=== PATIENT | female | born 1960 | race African-American/Black ===

== ENCOUNTER 2020-08-01 18:00 | IRF | payer MEDICARE, SELFPAY ==
--- NOTE | 2020-08-01 18:09 | ADMGEN ---
This patient, Nicole Raya, was admitted to [facility] Room 221-02. Patient/family oriented to hospital policies and general routines including ID bracelet, bed and alarms, visiting hours, pain management, procedures, bathroom and other care routines, personal items, smoking policy, room service/diet, and visiting hours. Information on how to activate the Rapid Response Team has been discussed. Patient/Family are encouraged to report perceived risks to care and to ask questions if they do not understand what they are told or what they should do.
[2020-08-01 18:20] VITALS: BP 151/67; PULSE 57; RESP 20; TEMP 36.3; O2SAT 100; BMI 34.4
[2020-08-01] MEDS: ATORVASTATIN 40 MG TABLET PO (20:15)
[2020-08-01 22:00] VITALS: BP 152/73; PULSE 51; RESP 19; TEMP 36; O2SAT 97
[2020-08-02 05:48] LABS: Basophils Percent Auto 0.3 % (0.2-1.2); Eosinophils Absolute Auto 0.2 K/mm3 (0-0.3); Eosinophils Percent Auto 2.9 % (0-4.4); Hematocrit 36.9 % (37.0-47.0); Hemoglobin 11.9 g/dL (12.0-15.0); Immature Granulocyte Absolute 0.03 K/mm3 (0.00-0.031); Immature Granulocyte Percent A 0.5 % (0-0.5); Lymphocytes Absolute Auto 2.34 K/mm3 (0.9-3.2); Lymphocytes Percent Auto 37.6 % (18.3-44.2); Mean Corpuscular HGB Conc 32.2 g/dl (32-36); Mean Corpuscular Hemoglobin 29.9 pg (26-34); Mean Corpuscular Volume 92.7 fl (80-100); Mean Platelet Volume 9.8 fl (7.4-10.4); Monocytes Absolute Auto 0.5 K/mm3 (0.1-0.6); Monocytes Percent Auto 7.2 % (2.6-8.5); Neutrophils Absolute Auto 3.2 K/mm3 (1.3-6.7); Neutrophils Percent Auto 51.5 % (45.5-73.1); Platelet Count Result 274 k/mm3 (150-375); Red Blood Count 3.98 M/mm3 (4.2-5.4); Red Cell Distribution Width 13.6 % (11.5-14.5); White Blood Count 6.2 K/mm3 (4.5-10.0)
[2020-08-02 05:56] LABS: Anion Gap 9 mmol/L (8-16); Blood Urea Nitrogen 22 mg/dL (7-17); Calcium 9.3 mg/dL (8.4-10.2); Carbon Dioxide 28 mmol/L (22-30); Chloride 102 mmol/L (98-107); Cholesterol 163 mg/dL (0-200); Estimated CRCL calculation 57 ml/min; Estimated Glomerular Filt Rate > 60; Glucose 100 mg/dL (65-105); HDL Direct 46 mg/dL; Potassium 3.7 mmol/L (3.4-5.0); Sodium 139 mmol/L (137-145); Triglycerides 132 mg/dL (<150)
[2020-08-02 06:00] VITALS: BP 155/79; PULSE 50; RESP 18; TEMP 36.2; O2SAT 98
[2020-08-02 06:07] LABS: LDL Cholesterol Direct 71 mg/dL
[2020-08-02] MEDS: NICOTINE (*PBKC) 14 MG PATCH 1 PATCH TRANSDERM (08:54)
[2020-08-02 08:55] VITALS: PULSE 48
[2020-08-02] MEDS: THIAMINE HCL 100 MG TABLET PO (08:55)
[2020-08-02] MEDS: amLODIPine BESYLATE 5 MG TABLET 10 MG PO (08:55)
[2020-08-02] MEDS: CLOPIDOGREL BISULFATE 75 MG TABLET PO (08:55)
[2020-08-02] MEDS: VENLAFAXINE HCL XR 75 MG CAP.ER.24H PO (08:55)
[2020-08-02] MEDS: CHLORTHALIDONE 25 MG TABLET 50 MG PO (08:55)
[2020-08-02] MEDS: ASPIRIN 81 MG CHEWABLE TABLET PO (08:55)
[2020-08-02] MEDS: FOLIC ACID 1 MG TABLET PO (08:56)
[2020-08-02] MEDS: ACETAMINOPHEN 325 MG TABLET 650 MG PO ×2 (12:49→17:22)
[2020-08-02] MEDS: guaiFENesin/DEXTROMETHORPHAN 10 ML UDC PO (12:49)
[2020-08-02 14:00] VITALS: BP 128/79; PULSE 63; RESP 20; TEMP 36.1; O2SAT 100
[2020-08-02 14:29] VITALS: BMI 34.4
--- NOTE | 2020-08-02 14:47 | PCNSR ---
On 08/02/20, the student, Madiha Osborne, provided care and completed [facility] documentation on this patient. I have reviewed the student's documentation and agree with the findings.
--- NOTE | 2020-08-02 16:34 | WPDREHABHP ---
H&P: HPI History of Present Illness Date/Time: 08/02/20 16:34 Chief complaint: CVA Narrative: Nicole Raya is a 59 year old femaleAdmitted to the acute rehab floor with the primary rehab impairment category of his stroke and etiological diagnosis of multiple subcentimeter area of acute and subacute infarction within the posterior fossa. Patient was seen [id number] at 11:00 a.m. on August 02, 2020 history and physical examination 59 years old right-handed female with past medical history of significant hypertension, depression, and arthritis presented to [facility] via EMS from [facility] on July 25, 2020 with the complaint of left-sided weakness which began approximately 2 days prior to the admission. NIH noted to be 2 at OSH and 5 at [facility]. Patient reported swollen tongue and dysarthria edb again at the OS H. MRI at OSH confirmed a multiple subcentimeter areas of acute and subacute infarction within the posterior fossa and 1 within the left thalamus. Patient was not a tPA candidate due to the presentation past 4-1/2 hours after onset. The patient is a heavy tobacco user and a nicotine patch 14 per day was order. Neurology was consulted and the patient was started on aspirin, clopidogrel and atorvastatin. The patient was not on any antithrombotic medications at home prior to this particular incident. CTA results showed severe basilar artery stenosis with severe RV for stenosis and moderate LV for his stenosis CT angiogram documented severe basilar artery stenosis with near complete occlusion. Jacky unremarkable. This time suspect was most likely ischemic mechanism to be large artery atherosclerosis. Hemoglobin A1c is 5.7. Physical examination continued to reveal left-sided weakness, balance impairment, decreased gross motor control, decreased safety awareness, dysarthria, expressive aphasia, and ataxia. The patient is awake alert oriented x3 with poor insight into current deficit. She is on diabetic consistent carbohydrate regular consistency diet. She will discharged to [id number] see on heparin for DVT prophylaxis until she is consistently ambulating 150ft daily. Physician recommended Diederich a PT indefinitely. The patient has not traveled outside the [place] or had contact with someone who is ill that his travel outside the [place] in the past 21 days. The patient has not traveled to an area of the [place] that is experiencing known transmission of the Coronavirus and has not had close personal contact with anyone that has. The patient does not have fever the patient is not experiencing lower respiratory illness symptom. COVID-19 testing on July 26, 2020 was negative. Therapy was initiated at the acute care facility and the patient was transferred to us from [facility] on August 01, 2020 Review of Systems Review of Systems Narrative: FALLS OR SURGERIES: The patient has had [no] major surgeries in the 100 days prior to admission. They had [no] falls in the past year. They had [no] falls with injury in the past year. PAST MEDICAL HISTORY: [ hypertension, depression, arthritis, 2 tobacco use.] PAST SURGICAL HISTORY: None on the file] SOCIAL HISTORY: patient is a heavy tobacco user of 1 pack per day for the last 30 years. Patient denies alcohol or illicit drug use. The patient lives in a split level home with 6 steps to enter the house and 12 steps down to the kitchen. She lives with her significant other. The patient was independent in ADLs and IADLs prior to prior using a quad cane] FAMILY HISTORY: [] PRIOR LEVEL OF FUNCTION: Eating was [INDEPENDENT] Oral Care was [INDEPENDENT] Toileting Hygiene was [INDEPENDENT] Shower/Bathing was [INDEPENDENT] Upper Body Dressing was [INDEPENDENT] Lower Body Dressing was [INDEPENDENT] Donning/[place] Footwear was [INDEPENDENT] Rolling Left and Right was [INDEPENDENT] Sit to Lying was [INDEPENDENT] Lying to Si
--- NOTE | 2020-08-02 17:30 | PC.NURSE ---
patient refused hygroten at this time. patient states she has not taken that medication for years. MD updated and spoke to patient. will continue to monitor.
[2020-08-02] MEDS: ATORVASTATIN 40 MG TABLET PO (20:26)
[2020-08-02 22:00] VITALS: BP 134/66; PULSE 53; RESP 19; TEMP 36.2; O2SAT 99
[2020-08-03] MEDS: BENZOCAINE/MENTHOL (*BKC) 18 EA LOZENGE 1 LOZENGE BY MOUTH (05:54)
[2020-08-03 06:00] VITALS: BP 158/90; PULSE 53; RESP 19; TEMP 36.1; O2SAT 98
--- NOTE | 2020-08-03 08:53 | RPD ---
INDIVIDUALIZED PLAN OF CARE FOR Nicole Raya Brief Synthesis of Pre-Admission Screen, Post-Admission Evaluation and Therapy Evaluations: The patient presents to rehab with multiple sub-centimer area of acute-subacute infarction within the posterior fossa. Comorbidities include severe basilar artery stenosis with near complete occlusion, severe R V4 stenosis, moderate L V4 stenosis, leftside headache, tongue swelling, left-sided weakness, dysarthria, heavy tobacco use, HTN, depression, arthritis, and expressive aphasia. The complexity of the patient's medical management, nursing, and therapy needs require an inpatient rehab hospital stay with a physician-led interdisciplinary team approach. The patient?s needs will be best met in an intensive program vs. at a lower level of care. The patient requires physician services for neurology services, medical oversight, and coordination of care. The patient needs physician monitoring and treatment of hypertension, bradycardia, monitoring for adverse reactions to new medications, monitoring of infection, and pain control. The patient requires nursing services for frequent neuro checks, anticoagulation therapy, medication management and education, pressure relief and skin care management, monitoring of labs, and fall/safety precautions. Deficits include:ADLs, Balance, Cognition, Endurance, Family Training/Education, Mobility, Pain Management, ROM, Safety, Speech, Strength, and Transfers. Manager Gaming/Case Management for: Discharge Planning and Patient/Family Counseling Physical Therapy: 5 days per week for 75 minutes. Treatments may include: Therapeutic Exercise, Gait Training, Neuromuscular Re-education, Transfer Training, Community Reintegration, Bed Mobility, Patient/Family Education, Wheelchair Mobility Group Therapy/Concurrent Therapy Rationales: -Improve attention span during functional activities in a distracted environment. -Enhance problem solving and/or adequate judgment skills during functional activities in a distracted environment. -Promote increased safety awareness in a distracted environment to reduce fall risk with functional tasks, transfers, and ambulation to allow a more safe, self-sufficient return to the home environment. -Improve dynamic balance skills to promote safety and independence with functional activities in a distracted environment for maximum gain. Occupational Therapy: 5 days per week for 75 minutes. Treatments may include: Therapeutic Exercise, Therapeutic Activity, Cognitive Training, Self-Care Transfer Training, Community Reintegration, Home Management, Patient/Family Education, Wheelchair Mobility Training, Energy Conservation Training Group Therapy/Concurrent Therapy Rationales: -Allow therapist to observe and teach generalization and carry-over of skills learned in individual therapy. -Enhance problem solving and sequencing skills during therapeutic activities in a distracted environment. -Promote increased safety awareness in a realistic setting to reduce fall risk with functional tasks due to visual and verbal distractions. -Increase functional level with ADLs, ADL transfers and use of adaptive equipment through therapeutic activities with others while promoting safety to allow a more safe, self-sufficient return home. Speech Therapy: 5 days per week for 30 minutes. Treatments may include: Dysphasia Therapy, Speech/Language/Communication Therapy, Cognitive Training, Patient/Family Education Group Therapy/Concurrent Therapy - Rationale: -Allow therapist to observe and teach generalization and carry-over of skills learned in individual therapy. -Improve comprehension skills with complex or abstract ideas through discussion in a realistic setting. -Enhance problem solving skills with complex issues during activities in a distracted environment. -Promote increased memory skills and concentration in a distracted environment for a safe transition home. -Improve attention and focus wit
[2020-08-03] MEDS: amLODIPine BESYLATE 5 MG TABLET 10 MG PO (09:57)
[2020-08-03] MEDS: VENLAFAXINE HCL XR 75 MG CAP.ER.24H PO (09:57)
[2020-08-03] MEDS: CLOPIDOGREL BISULFATE 75 MG TABLET PO (09:58)
[2020-08-03] MEDS: CHLORTHALIDONE 25 MG TABLET 50 MG PO ×2 (09:58→17:18)
[2020-08-03] MEDS: ASPIRIN 81 MG CHEWABLE TABLET PO (09:58)
[2020-08-03] MEDS: THIAMINE HCL 100 MG TABLET PO (09:58)
[2020-08-03] MEDS: FOLIC ACID 1 MG TABLET PO (09:59)
[2020-08-03] MEDS: NICOTINE (*PBKC) 14 MG PATCH 1 PATCH TRANSDERM (09:59)
[2020-08-03 10:13] VITALS: PULSE 78
[2020-08-03] MEDS: guaiFENesin/DEXTROMETHORPHAN 10 ML UDC PO ×2 (10:13→23:51)
[2020-08-03] MEDS: atenoloL 50 MG TABLET PO (10:13)
[2020-08-03 14:00] VITALS: BP 162/87; PULSE 78; RESP 20; TEMP 36.6; O2SAT 99
--- NOTE | 2020-08-03 18:06 | PC.NURSE ---
This evening patient has been restless and talking about leaving the hospital, stated she was going to call [employer] for a ride home, Counseled at length and reassured that doctor would speak to her tomorrow about discharge, i attempted to call her daughter listed on paperwork but there was no answer and mailbox was full. i spoke with dr. Fernandez, we have orders to start zyprexa and then continue daily 2.5mg, patient at this time is agreeable
[2020-08-03] MEDS: ATORVASTATIN 40 MG TABLET PO (18:43)
[2020-08-03 20:00] VITALS: PULSE 48; RESP 20; O2SAT 100
[2020-08-03 22:00] VITALS: BP 131/79; PULSE 48; RESP 20; TEMP 35.7; O2SAT 100
[2020-08-04] MEDS: BENZOCAINE/MENTHOL (*BKC) 18 EA LOZENGE 1 LOZENGE BY MOUTH ×5 (00:32→23:15)
[2020-08-04 01:00] VITALS: PULSE 48; RESP 20; O2SAT 100
[2020-08-04 05:43] VITALS: BP 114/56; PULSE 41; RESP 20; TEMP 36; O2SAT 99
[2020-08-04] MEDS: CHLORTHALIDONE 25 MG TABLET 50 MG PO ×2 (08:59→16:15)
[2020-08-04] MEDS: amLODIPine BESYLATE 5 MG TABLET 10 MG PO (09:00)
[2020-08-04] MEDS: ASPIRIN 81 MG CHEWABLE TABLET PO (09:00)
[2020-08-04] MEDS: FOLIC ACID 1 MG TABLET PO (09:01)
[2020-08-04] MEDS: THIAMINE HCL 100 MG TABLET PO (09:01)
[2020-08-04] MEDS: CLOPIDOGREL BISULFATE 75 MG TABLET PO (09:01)
[2020-08-04] MEDS: NICOTINE (*PBKC) 14 MG PATCH 1 PATCH TRANSDERM (09:01)
[2020-08-04] MEDS: VENLAFAXINE HCL XR 75 MG CAP.ER.24H PO (09:01)
[2020-08-04 09:02] VITALS: PULSE 46
--- NOTE | 2020-08-04 09:02 | PC.NURSE ---
pt heart rate noted at 46. atenolol was held at this time. md updated. will continue to monitor.
--- NOTE | 2020-08-04 12:53 | WPDNEURORHBP ---
Subjective Date/time seen: 08/04/20 12:53 59 years old admitted to the acute rehab floor with primary rehab impairment category of his stroke along with documentation of multiple subcentimeter areas of infarction within the posterior fossa in addition to comorbid conditions of hypertension, arthritis and depression and clinical symptoms of left hemiparesis of 48 hours duration her CTA has documented severe basilar artery stenosis with near complete occlusion Review of Systems Review of Systems: All systems reviewed & are unremarkable except as noted in HPI and below Functional Status Ambulation Ability Ability to Ambulate 10 Feet: Contact Guard Ability to Ambulate 50 Feet With 2 Turns: Contact Guard Ability to Ambulate 150 Feet: Contact Guard Ambulation Assistive Devices: Cane Transfers Ability Ability to Transfer In/Out of Chair: Standby Assistance Exam Narrative: Exam Narrative: on examination today she is awake alert cooperative in no obvious acute distress ear nose throat examination normal neck supple with no cervical bruits no thyromegaly no lymphadenopathy heart regular with no murmur lungs clear to auscultation with no rhonchi or crepitation abdomen is soft with no organomegaly neurological examination is unchanged her hemoglobin is 11.9 with WBC 6.2 and platelet count of 274 electrolytes normal with BUN of 22 and creatinine of 1.10 Objective Data Vital Signs Vital Signs: Vital Signs - 24 hr 08/03/20 14:00 08/03/20 20:00 08/03/20 22:00 Temperature 36.6 C 35.7 C L Pulse Rate 78 48 L 48 L Respiratory Rate 20 20 20 Blood Pressure 162/87 H 131/79 Pulse Oximetry 99 100 100 08/04/20 01:00 08/04/20 05:43 08/04/20 09:02 Temperature 36.0 C L Pulse Rate 48 L 41 L 46 L Respiratory Rate 20 20 Blood Pressure 114/56 L Pulse Oximetry 100 99 Intake/Output Intake/Output: Intake & Output 08/01/20 08/02/20 08/03/20 08/04/20 23:59 23:59 23:59 23:59 Intake Total 240 720 720 240 Balance 240 720 720 240 Meds/Results Medications: Active Medications Generic Name Dose Route Start Last Admin Trade Name Freq PRN Reason Stop Dose Admin Acetaminophen 650 mg 08/02/20 11:52 08/02/20 17:22 Acetaminophen 325 Mg Tablet PO 650 mg Q4H PRN Administration Pain or Fever Amlodipine Besylate 10 mg 08/02/20 09:00 08/04/20 09:00 Amlodipine Besylate 5 Mg Tablet PO 10 mg DAILY JAYY Administration Aspirin 81 mg 08/02/20 09:00 08/04/20 09:00 Aspirin 81 Mg Chewable Tablet PO 81 mg DAILY JAYY Administration Atenolol 50 mg 08/02/20 09:00 08/04/20 09:02 Atenolol 50 Mg Tablet PO Not Given DAILY JAYY Atorvastatin Calcium 40 mg 08/01/20 21:00 08/03/20 18:43 Atorvastatin 40 Mg Tablet PO 40 mg HS JAYY Administration Benzocaine 1 lozenge 08/01/20 18:25 08/04/20 08:59 Benzocaine/Menthol (*Bkc) 18 Ea Lozenge BY MOUTH 1 lozenge Q2H PRN Administration Sore Throat Chlorthalidone 50 mg 08/02/20 09:00 08/04/20 08:59 Chlorthalidone 25 Mg Tablet PO 09/01/20 09:01 50 mg BID JAYY Administration Clopidogrel Bisulfate 75 mg 08/02/20 09:00 08/04/20 09:01 Clopidogrel Bisulfate 75 Mg Tablet PO 75 mg DAILY JAYY Administration Folic Acid 1 mg 08/02/20 09:00 08/04/20 09:01 Folic Acid 1 Mg Tablet PO 1 mg DAILY JAYY Administration Guaifenesin/Dextromethorphan 10 ml 08/01/20 18:25 08/03/20 23:51 Guaifenesin/Dextromethorphan 10 Ml Udc PO 10 ml Q6H PRN Administration Cough Nicotine 1 patch 08/02/20 09:00 08/04/20 09:01 Nicotine (*Pbkc) 14 Mg Patch TRANSDERM 1 patch QAM JAYY Administration Olanzapine 2.5 mg 08/04/20 09:00 08/04/20 08:59 Olanzapine Tab 2.5 Mg Tablet PO 2.5 mg QAM JAYY Administration Thiamine HCl 100 mg 08/02/20 09:00 08/04/20 09:01 Thiamine Hcl 100 Mg Tablet PO 100 mg DAILY JAYY Administration Venlafaxine HCl 75 mg 08/02/20 08:00 08/04/20 09:01 Venlafaxine Hcl Xr 75 Mg Cap.Er.24h P
[2020-08-04 14:00] VITALS: BP 114/59; PULSE 57; RESP 20; TEMP 36.6; O2SAT 100
[2020-08-04] MEDS: guaiFENesin/DEXTROMETHORPHAN 10 ML UDC PO ×2 (16:15→23:13)
[2020-08-04] MEDS: ATORVASTATIN 40 MG TABLET PO (19:59)
[2020-08-04 20:00] VITALS: PULSE 82; RESP 20; O2SAT 98
[2020-08-04 21:44] VITALS: BP 130/63; PULSE 82; RESP 20; TEMP 36.8; O2SAT 98
[2020-08-04] MEDS: ACETAMINOPHEN 325 MG TABLET 650 MG PO (23:18)
[2020-08-05] MEDS: BENZOCAINE/MENTHOL (*BKC) 18 EA LOZENGE 1 LOZENGE BY MOUTH ×4 (04:13→22:19)
[2020-08-05 05:50] LABS: Glucose Point of Care 99 (65-105)
[2020-08-05 06:00] VITALS: BP 148/80; PULSE 76; RESP 20; TEMP 36.6; O2SAT 100
[2020-08-05 09:30] VITALS: PULSE 86; RESP 18; O2SAT 99
[2020-08-05] MEDS: NICOTINE (*PBKC) 14 MG PATCH 1 PATCH TRANSDERM ×2 (09:37→14:41)
[2020-08-05] MEDS: guaiFENesin/DEXTROMETHORPHAN 10 ML UDC PO ×3 (09:37→20:53)
[2020-08-05] MEDS: amLODIPine BESYLATE 5 MG TABLET 10 MG PO (09:37)
[2020-08-05 09:38] VITALS: PULSE 78
[2020-08-05] MEDS: atenoloL 50 MG TABLET PO (09:38)
[2020-08-05] MEDS: ASPIRIN 81 MG CHEWABLE TABLET PO (09:38)
[2020-08-05] MEDS: CHLORTHALIDONE 25 MG TABLET 50 MG PO ×2 (09:39→16:02)
[2020-08-05] MEDS: VENLAFAXINE HCL XR 75 MG CAP.ER.24H PO (09:39)
[2020-08-05] MEDS: FOLIC ACID 1 MG TABLET PO (09:40)
[2020-08-05] MEDS: CLOPIDOGREL BISULFATE 75 MG TABLET PO (09:40)
[2020-08-05] MEDS: THIAMINE HCL 100 MG TABLET PO (09:40)
[2020-08-05 14:00] VITALS: BP 143/69; PULSE 86; RESP 20; TEMP 36.2; O2SAT 99
[2020-08-05 20:00] VITALS: PULSE 51; RESP 19; O2SAT 96
[2020-08-05] MEDS: ATORVASTATIN 40 MG TABLET PO (20:52)
[2020-08-05 22:00] VITALS: BP 132/67; PULSE 51; RESP 19; TEMP 36; O2SAT 96
--- NOTE | 2020-08-06 01:08 | PC.NURSE ---
Daylight Savings Time For Daylight Savings Time Ending in the Fall - Clocks are moved back. For Daylight Savings Time Beginning in the Spring - Clocks are moved ahead. For [facility], the time of change occurs at 0200 hrs. Time is taken from the tower observer. This entry on the patient's chart recognizes the change in time reflected during documentation. Example: 2 entries for vital signs may be charted for 0200 hrs.
[2020-08-06] MEDS: BENZOCAINE/MENTHOL (*BKC) 18 EA LOZENGE 1 LOZENGE BY MOUTH (04:22)
[2020-08-06 06:00] VITALS: BP 149/87; PULSE 54; RESP 19; TEMP 36.4; O2SAT 100
[2020-08-06] MEDS: guaiFENesin/DEXTROMETHORPHAN 10 ML UDC PO ×3 (06:40→21:26)
[2020-08-06] MEDS: CLOPIDOGREL BISULFATE 75 MG TABLET PO (08:45)
[2020-08-06] MEDS: ASPIRIN 81 MG CHEWABLE TABLET PO (08:45)
[2020-08-06] MEDS: amLODIPine BESYLATE 5 MG TABLET 10 MG PO (08:45)
[2020-08-06 08:46] VITALS: PULSE 56
[2020-08-06] MEDS: VENLAFAXINE HCL XR 75 MG CAP.ER.24H PO (08:46)
[2020-08-06] MEDS: atenoloL 50 MG TABLET PO (08:46)
[2020-08-06] MEDS: THIAMINE HCL 100 MG TABLET PO (08:46)
[2020-08-06] MEDS: CHLORTHALIDONE 25 MG TABLET 50 MG PO ×2 (08:46→17:04)
[2020-08-06] MEDS: FOLIC ACID 1 MG TABLET PO (08:46)
[2020-08-06] MEDS: NICOTINE (*PBKC) 14 MG PATCH 1 PATCH TRANSDERM (08:47)
--- NOTE | 2020-08-06 11:19 | WPDNEURORHBP ---
Subjective Date/time seen: 08/06/20 11:19 59 years old has been admitted to the acute rehab with the primary rehab impairment category of stroke along with documentation of multiple subcentimeter areas of infarction in posterior fossa in addition to the comorbid conditions of hypertension, arthritis, and depression and clinical symptomatology of left hemiparesis. CTA has been documented with severe basilar artery stenosis with near complete occlusion. Lab revealed WBC 6.2 with hemoglobin 11.9 platelet count 274 BUN 22 glucose 100 triglycerides 132 cholesterol 163 with LDL 71 and HDL 46 medications unchanged able to ambulate up to 150ft with contact guard and a cane along with ability to transfer in and out of chair standby assistance Review of Systems Review of Systems: All systems reviewed & are unremarkable except as noted in HPI and below Functional Status Ambulation Ability Ability to Ambulate 10 Feet: Contact Guard Ability to Ambulate 50 Feet With 2 Turns: Contact Guard Ability to Ambulate 150 Feet: Contact Guard Ambulation Assistive Devices: Cane Transfers Ability Ability to Transfer In/Out of Chair: Standby Assistance Exam Narrative: Exam Narrative: examination revealed her to be awake alert cooperative in no distress ear nose throat examination normal. Neck is supple. Heart regular. Lungs clear. abdomen is soft . Neuro examination unchanged Objective Data Vital Signs Vital Signs: Vital Signs - 24 hr 08/05/20 14:00 08/05/20 20:00 08/05/20 22:00 Temperature 36.2 C L 36.0 C L Pulse Rate 86 51 L 51 L Respiratory Rate 20 19 19 Blood Pressure 143/69 H 132/67 Pulse Oximetry 99 96 96 08/06/20 06:00 08/06/20 08:46 Temperature 36.4 C L Pulse Rate 54 L 56 L Respiratory Rate 19 Blood Pressure 149/87 H Pulse Oximetry 100 Intake/Output Intake/Output: Intake & Output 08/03/20 08/04/20 08/05/20 08/06/20 23:59 23:59 23:59 22:59 Intake Total 720 720 720 240 Balance 720 720 720 240 Meds/Results Medications: Active Medications Generic Name Dose Route Start Last Admin Trade Name Freq PRN Reason Stop Dose Admin Acetaminophen 650 mg 08/02/20 11:52 08/04/20 23:18 Acetaminophen 325 Mg Tablet PO 650 mg Q4H PRN Administration Pain or Fever Amlodipine Besylate 10 mg 08/02/20 09:00 08/06/20 08:45 Amlodipine Besylate 5 Mg Tablet PO 10 mg DAILY JAYY Administration Aspirin 81 mg 08/02/20 09:00 08/06/20 08:45 Aspirin 81 Mg Chewable Tablet PO 81 mg DAILY JAYY Administration Atenolol 50 mg 08/02/20 09:00 08/06/20 08:46 Atenolol 50 Mg Tablet PO 50 mg DAILY JAYY Administration Atorvastatin Calcium 40 mg 08/01/20 21:00 08/05/20 20:52 Atorvastatin 40 Mg Tablet PO 40 mg HS JAYY Administration Benzocaine 1 lozenge 08/01/20 18:25 08/06/20 04:22 Benzocaine/Menthol (*Bkc) 18 Ea Lozenge BY MOUTH 1 lozenge Q2H PRN Administration Sore Throat Chlorthalidone 50 mg 08/02/20 09:00 08/06/20 08:46 Chlorthalidone 25 Mg Tablet PO 09/01/20 09:01 50 mg BID JAYY Administration Clopidogrel Bisulfate 75 mg 08/02/20 09:00 08/06/20 08:45 Clopidogrel Bisulfate 75 Mg Tablet PO 75 mg DAILY JAYY Administration Folic Acid 1 mg 08/02/20 09:00 08/06/20 08:46 Folic Acid 1 Mg Tablet PO 1 mg DAILY JAYY Administration Guaifenesin/Dextromethorphan 10 ml 08/05/20 11:45 08/06/20 06:40 Guaifenesin/Dextromethorphan 10 Ml Udc PO 10 ml Q4H PRN Administration Cough Nicotine 1 patch 08/02/20 09:00 08/06/20 08:47 Nicotine (*Pbkc) 14 Mg Patch TRANSDERM 1 patch QAM JAYY Administration Olanzapine 2.5 mg 08/04/20 09:00 08/06/20 08:46 Olanzapine Tab 2.5 Mg Tablet PO 2.5 mg QAM JAYY Administration Thiamine HCl 100 mg 08/02/20 09:00 08/06/20 08:46 Thiamine Hcl 100 Mg Tablet PO 100 mg DAILY JAYY Administration Venlafaxine HCl 75 mg 08/02/20 08:00 08/06/20 08:46 Venlafaxine Hcl Xr 75 Mg Cap.Er.24h PO 7
[2020-08-06 14:00] VITALS: BP 133/71; PULSE 58; RESP 18; TEMP 36.8; O2SAT 100
[2020-08-06] MEDS: ACETAMINOPHEN 325 MG TABLET 650 MG PO (17:07)
[2020-08-06] MEDS: ATORVASTATIN 40 MG TABLET PO (19:59)
[2020-08-06 22:00] VITALS: BP 128/65; PULSE 51; RESP 16; TEMP 36.1; O2SAT 96
[2020-08-07] MEDS: BENZOCAINE/MENTHOL (*BKC) 18 EA LOZENGE 1 LOZENGE BY MOUTH (00:14)
[2020-08-07] MEDS: guaiFENesin/DEXTROMETHORPHAN 10 ML UDC PO ×3 (01:52→18:22)
[2020-08-07 06:00] VITALS: BP 131/89; PULSE 54; RESP 19; TEMP 36.4; O2SAT 100
[2020-08-07] MEDS: CHLORTHALIDONE 25 MG TABLET 50 MG PO ×2 (08:32→16:40)
[2020-08-07] MEDS: amLODIPine BESYLATE 5 MG TABLET 10 MG PO (08:32)
[2020-08-07] MEDS: ASPIRIN 81 MG CHEWABLE TABLET PO (08:32)
[2020-08-07] MEDS: THIAMINE HCL 100 MG TABLET PO (08:32)
[2020-08-07 08:33] VITALS: PULSE 54
[2020-08-07] MEDS: VENLAFAXINE HCL XR 75 MG CAP.ER.24H PO (08:33)
[2020-08-07] MEDS: NICOTINE (*PBKC) 14 MG PATCH 1 PATCH TRANSDERM (08:33)
[2020-08-07] MEDS: CLOPIDOGREL BISULFATE 75 MG TABLET PO (08:33)
[2020-08-07] MEDS: atenoloL 50 MG TABLET PO (08:33)
[2020-08-07] MEDS: FOLIC ACID 1 MG TABLET PO (08:34)
[2020-08-07] MEDS: MULTIVITAMINS THERAPEUTIC TAB (*BKC) 1 TABLET PO (11:24)
[2020-08-07 14:00] VITALS: BP 120/69; PULSE 78; RESP 18; TEMP 37.1; O2SAT 100
[2020-08-07 20:30] VITALS: PULSE 51; RESP 18; O2SAT 100
[2020-08-07 20:59] VITALS: BP 118/59; PULSE 51; RESP 18; TEMP 36; O2SAT 100
[2020-08-07] MEDS: ATORVASTATIN 40 MG TABLET PO (21:20)
[2020-08-08] MEDS: BENZOCAINE/MENTHOL (*BKC) 18 EA LOZENGE 1 LOZENGE BY MOUTH ×2 (00:22→05:41)
[2020-08-08 05:39] VITALS: BP 138/69; PULSE 48; RESP 20; TEMP 36.1; O2SAT 100
[2020-08-08] MEDS: guaiFENesin/DEXTROMETHORPHAN 10 ML UDC PO (05:41)
[2020-08-08] MEDS: ASPIRIN 81 MG CHEWABLE TABLET PO (10:21)
[2020-08-08] MEDS: VENLAFAXINE HCL XR 75 MG CAP.ER.24H PO (10:21)
[2020-08-08] MEDS: amLODIPine BESYLATE 5 MG TABLET 10 MG PO (10:21)
[2020-08-08] MEDS: CHLORTHALIDONE 25 MG TABLET 50 MG PO (10:22)
[2020-08-08] MEDS: FOLIC ACID 1 MG TABLET PO (10:22)
[2020-08-08] MEDS: CLOPIDOGREL BISULFATE 75 MG TABLET PO (10:22)
[2020-08-08] MEDS: THIAMINE HCL 100 MG TABLET PO (10:23)
[2020-08-08] MEDS: MULTIVITAMINS THERAPEUTIC TAB (*BKC) 1 TABLET PO (10:23)
[2020-08-08 10:24] VITALS: PULSE 48
[2020-08-08] MEDS: NICOTINE (*PBKC) 14 MG PATCH 1 PATCH TRANSDERM (10:25)
--- NOTE | 2020-08-10 15:26 | PM.DS ---
DS: Admitting Diagnosis Admitting Diagnosis Admitting Diagnosis: 59 years old admitted to the rehab floor with the diagnosis of his stroke and acute and subacute infarction within the posterior fossa in addition to comorbid conditions of no specific problem except hypertension arthritis and depression but history of heavy tobacco use: at the time of admission Eating was setup only Oral Care supervision Toileting Hygiene partial assistance Shower/Bathing partial assistance Upper Body Dressing supervision Lower Body Dressing partial assistance footwear supervision Rolling Left and Right independent sit to lying independent Lying to [place] supervision Bed to Chair Transfers super vision Toilet Transfers super vision Car Transfers supervision Walking 10' partial assistance Walking 50' with Two Turns partial assistance Walking 150' partial assistance Curb or Step partial assistance 4 Steps partial assistance 12 Steps patient is unable to Picking Up Object supervision [Wheelchair Mobility not applicable GOALS: Eating [INDEPENDENT] Oral Care [INDEPENDENT] Toileting Hygiene [INDEPENDENT] Shower/Bathing [INDEPENDENT] Upper Body Dressing [INDEPENDENT] Lower Body Dressing [INDEPENDENT] Donning/[place] Footwear [INDEPENDENT] Rolling Left and Right [INDEPENDENT] Sit to Lying [INDEPENDENT] Lying to Sitting [INDEPENDENT] Sit to Stand [INDEPENDENT] Bed to Chair Transfers [INDEPENDENT] Toilet Transfers [INDEPENDENT] Car Transfers [INDEPENDENT] Walking 10' [INDEPENDENT] Walking 50' with Two Turns [INDEPENDENT] Walking 150' [INDEPENDENT] Curb or Step [INDEPENDENT] 4 Steps [INDEPENDENT] 12 Steps [INDEPENDENT] Picking Up Object [INDEPENDENT] [Wheelchair Mobility 50'] [INDEPENDENT] [Wheelchair Mobility 150'] [INDEPENDENT] DISCHARGE PERFORMANCE: Eating [INDEPENDENT] Oral Care [INDEPENDENT] Toileting Hygiene [INDEPENDENT] Shower/Bathing supervision Upper Body Dressing [INDEPENDENT] Lower Body Dressing [INDEPENDENT] Donning/[place] Footwear [INDEPENDENT] Rolling Left and Right [INDEPENDENT] Sit to Lying [INDEPENDENT] Lying to Sitting [INDEPENDENT] Sit to Stand [INDEPENDENT] Bed to Chair Transfers [INDEPENDENT] Toilet Transfers [INDEPENDENT] Car Transfers [INDEPENDENT] Walking 10' [INDEPENDENT] Walking 50' with Two Turns [INDEPENDENT] Walking 150' supervision walking 10ft on supervision uneven surfaces Curb or Step [INDEPENDENT] 4 Steps [INDEPENDENT] 12 Steps [INDEPENDENT] Picking Up Object [INDEPENDENT] [Wheelchair Mobility 50'] [Wheelchair Mobility 150' not applicable The patient had [no falls]. CVA DS: Summary Time Spent with Patient Time attestation: Total time spent providing and/or coordinating discharge services: Exam Narrative: Exam Narrative: patient throughout the hospitalization remained comfortable was involved actively in the physical therapy and occupational therapy prior to discharge was able to ambulate with assistive device of cane to 150ft stable to transfer in and out of chair with standby assistance general physical examination remained stable neck supple heart regular lungs clear abdomen is soft normal bowel sounds neuro examination unchanged was discharged to home with home health during the entire hospitalization has no falls or injuries and condition definitely improved Discharge Plan Discharge Attending physician on discharge: Alex Flores Discharging Clinician: Alfredo Fernandez Anticipated Discharge Date/Time: 08/08/20 14:24 Patient Disposition: Home Health Service Activity: as tolerated Diet: heart healthy Discharge Instructions: Per Care Coordination: Home Health services have been arranged through [facility]. [facility] can be contacted at [phone]. Please fax discharge instructions to [facility] at [phone]. Patient Instructions: Antibiotic Form, Clopidogrel (By mouth), How to Stop Smoki
--- NOTE | 2020-08-11 10:46 | PM.DS ---
DS: Admitting Diagnosis Admitting Diagnosis Admitting Diagnosis: : 59 years old admitted to the acute rehab with primary rehab impairment category of his stroke and etiological diagnosis of multiple subcentimeter areas of acute and subacute infarction within the posterior fossa in addition to a comorbid condition of hypertension, depression, arthritis, and tobacco abuse. At the time of admission as per the information available his level of function is as follows. Eating eating was set up oral hygiene supervision Toileting Hygiene partial visual merchandising assistant Shower/Bathing [] partial visual merchandising assistant Upper Body Dressing [] supervision Lower Body Dressing [] partial assistance Donning/Ravenel Footwear [] supervision Rolling Left and Right [] independent Sit to Lying [] independent Lying to Sitting [] supervision Sit to Stand [] supervision Bed to Chair Transfers [] supervision Toilet Transfers [] supervision Car Transfers [] supervision Walking 10' [] partial visual merchandising assistant Walking 50' with Two Turns [] partial visual merchandising assistant Walking 150' [] partial visual merchandising assistant Curb or Step [] partial assist 4 Steps [] partial assist 12 Steps [] unable to do so Picking Up Object [] supervising [Wheelchair Mobility 50'] [] not applicable [Wheelchair Mobility 150'] [] not applicable GOALS: Eating [INDEPENDENT] Oral Care [INDEPENDENT] Toileting Hygiene [INDEPENDENT] Shower/Bathing [INDEPENDENT] Upper Body Dressing [INDEPENDENT] Lower Body Dressing [INDEPENDENT] Donning/Ravenel Footwear [INDEPENDENT] Rolling Left and Right [INDEPENDENT] Sit to Lying [INDEPENDENT] Lying to Sitting [INDEPENDENT] Sit to Stand [INDEPENDENT] Bed to Chair Transfers [INDEPENDENT] Toilet Transfers [INDEPENDENT] Car Transfers [INDEPENDENT] Walking 10' [INDEPENDENT] Walking 50' with Two Turns [INDEPENDENT] Walking 150' [INDEPENDENT] Curb or Step [INDEPENDENT] 4 Steps [INDEPENDENT] 12 Steps [INDEPENDENT] Picking Up Object [INDEPENDENT] [Wheelchair Mobility 50'] [INDEPENDENT] [Wheelchair Mobility 150'] [INDEPENDENT] DISCHARGE PERFORMANCE: Eating [INDEPENDENT] Oral Care [INDEPENDENT] Toileting Hygiene [INDEPENDENT] Shower/Bathing supervision Upper Body Dressing [INDEPENDENT] Lower Body Dressing [INDEPENDENT] Donning/Ravenel Footwear [INDEPENDENT] Rolling Left and Right [INDEPENDENT] Sit to Lying [INDEPENDENT] Lying to Sitting [INDEPENDENT] Sit to Stand [INDEPENDENT] Bed to Chair Transfers [INDEPENDENT] Toilet Transfers [INDEPENDENT] Car Transfers [INDEPENDENT] Walking 10' on on even surfaces supervision Walking 50' with Two Turns partial assistance Walking 150' supervision Curb or Step independent 4 Steps independent 12 Steps independent Picking Up Object independent [Wheelchair Mobility 50'] not applicable not applicable [Wheelchair Mobility 150'] The patient had [no falls]. Eating [Set Up Only] Oral Care [] Toileting Hygiene [] Shower/Bathing [] Upper Body Dressing [] Lower Body Dressing [] Donning/Ravenel Footwear [] Rolling Left and Right [] Sit to Lying [] Lying to Sitting [] Sit to Stand [] Bed to Chair Transfers [] Toilet Transfers [] Car Transfers [] Walking 10' [] Walking 50' with Two Turns [] Walking 150' [] Curb or Step [] 4 Steps [] 12 Steps [] Picking Up Object [] [Wheelchair Mobility 50'] [] [Wheelchair Mobility 150'] [] GOALS: Eating [INDEPENDENT] Oral Care [INDEPENDENT] Toileting Hygiene [INDEPENDENT] Shower/Bathing [INDEPENDENT] Upper Body Dressing [INDEPENDENT] Lower Body Dressing [INDEPENDENT] Donning/Ravenel Footwear [INDEPENDENT] Rolling Left and Right [INDEPENDENT] Sit to Lying [INDEPENDENT] Lying to Sitting [INDEPENDENT] Sit to Stand [INDEPENDENT] Bed to Chair Transfers [INDEPENDENT] Toilet Transfers [INDEPENDENT] Car Transfers [INDEPENDENT] Walking 10' [INDEPENDENT] Walking 50' with Two Turns [INDEPENDENT] Walking 150' [INDEPENDENT] Curb or Step [INDEPENDENT] 4 Steps [INDEPENDENT] 12 Steps [INDEPENDENT] Picking Up Object
== END 2020-08-08 14:50 | disposition home health service (06) | DRG 57 ==
PROVIDERS: Admitting Provider Psychiatry & Neurology Neurology; PCP Internal Medicine; Visit Provider Psychiatry & Neurology Neurology
DX: I69.354 Hemiplegia and hemiparesis following cerebral infarction affecting left non-dominant side (principal); I69.322 Dysarthria following cerebral infarction; I69.320 Aphasia following cerebral infarction; I65.03 Occlusion and stenosis of bilateral vertebral arteries; I65.1 Occlusion and stenosis of basilar artery; I10 Essential (primary) hypertension; F32.9 Major depressive disorder, single episode, unspecified; F17.210 Nicotine dependence, cigarettes, uncomplicated; M19.90 Unspecified osteoarthritis, unspecified site
CPT/HCPCS: 36415; 80048; 80061; 85025; 92507; 92523; 97110; 97112; 97116; 97161; 97165; 97530; 97535; A9270

== ENCOUNTER 2021-05-25 09:25 | Emergency (ER) | payer MEDICARE, SELFPAY ==
[2021-05-25 10:10] VITALS: BP 166/91; PULSE 65; RESP 18; TEMP 36.8; O2SAT 98
[2021-05-25 11:00] VITALS: BP 192/88; PULSE 64; RESP 14; O2SAT 98
--- NOTE | 2021-05-25 11:11 | ED.DENTAL ---
HPI - Dental/Oral General Chief complaint: Dental/Oral Stated complaint: TOOTH PAIN Time Seen by Provider: 05/25/21 10:15 Source: patient Mode of arrival: ambulatory Limitations: other (History of stroke with expressive aphasia) History of Present Illness HPI Narrative: This is a 60 year old female that presents to the ER for toothache x 3 days. Presents from [facility] with complaints of her filling falling out. Reporting pain and swelling to the area of two teeth on the right side. Denies fever or facial swelling. Location: Tooth # (1 and 31) Related Data Home Medications Medication Instructions Recorded Confirmed amlodipine 05/25/21 aspirin 05/25/21 atorvastatin 05/25/21 clonidine HCl 05/25/21 clopidogrel 05/25/21 duloxetine mg PO 05/25/21 famotidine 05/25/21 gabapentin 05/25/21 hydroxyzine HCl 05/25/21 lisinopril 05/25/21 trazodone 05/25/21 Allergies Allergy/AdvReac Type Severity Reaction Status Date / Time Penicillins Allergy Unknown Verified 05/25/21 10:38 Review of Systems Review of Systems: CONSTITUTIONAL: Denies fever, ENT: Reports dentalgia RESPIRATORY: Denies dyspnea. All systems reviewed & are unremarkable except as noted in HPI and below PMFSH Past Medical History Medical History (Updated 05/25/21 @ 11:17 by Kaylee Lizarraga PA-C) History of CVA (cerebrovascular accident) History of hyperlipidemia History of hypertension Exam Narrative: GENERAL: Well-appearing, well-nourished, and in no acute distress. HEAD: Normocephalic, atraumatic. EYES: EOMI. ENT: Poor dentition. Tooth #1 and 32 tender to palpation. Mild surrounding redness. No edema or fluctuance to suggest abscess. No trismus. Floor of mouth is soft NECK: Supple. No adenopathy or masses. CHEST: Airway patent HEART: Regular rate EXTREMITIES: Normal range of motion. No edema. SKIN: Warm, dry, no rash. NEURO: Alert and oriented x1 PSYCH: Normal mood and affect Course Vital Signs Vital signs: Vital Signs Temperature 98.2 F 05/25/21 10:10 Pulse Rate 65 05/25/21 10:10 Respiratory Rate 18 05/25/21 10:10 Blood Pressure 166/91 H 05/25/21 10:10 Pulse Oximetry 98 05/25/21 10:10 Temperature 98.2 F 05/25/21 10:10 Pulse Rate 65 05/25/21 10:10 Respiratory Rate 18 05/25/21 10:10 Blood Pressure 166/91 H 05/25/21 10:10 Pulse Oximetry 98 05/25/21 10:10 MDM - Dental/Oral MDM Narrative Medical decision making narrative: Patient presents to the emergency department for toothache ongoing for the last couple of days. She is afebrile and nontoxic-appearing. No trismus. Floor of mouth is soft. Mild redness surrounding the 2 teeth that are painful. There is no evidence of abscess. Patient will be started on oral antibiotics and is to follow-up with a dentist. She was given warnings to return to the ER Critical Care Time Critical Care Time Critical Care Time: No Discharge Plan Discharge Clinical Impression: Toothache Patient Disposition: Home, Self-Care Condition: Stable Instructions: Antibiotic Form, Toothache (ED) Additional Instructions: Return to the Emergency Department if you experience fever >101, increasing swelling and redness of your tooth, difficulty swallowing, trouble breathing, or any other symptoms that are concerning to you Take antibiotic as prescribed. Tylenol or Ibuprofen as needed for pain. You can apply a dab of clove oil to a Qtip and apply to the tooth to help numb the area Follow up with a dentist Prescriptions: New clindamycin HCl 300 mg capsule 300 mg PO Q8H 7 Days Qty: 21 RF: 0 No Action atorvastatin 80 mg tablet RF: 0 clonidine HCl 0.1 mg tablet RF: 0 trazodone 50 mg tablet RF: 0 clopidogrel 75 mg tablet RF: 0 famotidine 20 mg tablet RF: 0 amlodipine 10 mg tablet RF: 0 gabapentin 300 mg capsule RF: 0 aspirin 81 mg tablet,chewable
--- NOTE | 2021-05-25 11:42 | PC.NURSE ---
called and spoke w/ genny to see if [facility] is capable of transporting pt. back to facility states they have no form or transportation at this time.
--- NOTE | 2021-05-25 11:53 | PC.NURSE ---
attempted to call report 2x on pt. no answer at this time.
--- NOTE | 2021-05-25 11:54 | PC.NURSE ---
[facility] to come and get pt. and transport back to facility.
[2021-05-25 12:00] VITALS: BP 166/89; PULSE 56; RESP 14; O2SAT 97
--- NOTE | 2021-05-25 12:30 | PC.NURSE ---
Pt. turned and rolled by GENEVIEVE and ramez.
--- NOTE | 2021-05-25 12:40 | PC.NURSE ---
Pt. requesting apple juice before she leaves
--- NOTE | 2021-05-25 12:41 | PC.NURSE ---
Pt. requesting thick liquid to drink juice. RN informed pt. we do not have that and she could take the apple juice with her to the care home where she has access to the thick liquid.
[2021-05-25 13:00] VITALS: BP 165/84; PULSE 51; RESP 14; O2SAT 97
== END 2021-05-25 13:15 | disposition home or self-care (01) ==
PROVIDERS: Emergency Provider Emergency Medicine; PCP Internal Medicine
DX: K08.89 Other specified disorders of teeth and supporting structures (principal); R21 Rash and other nonspecific skin eruption; E78.5 Hyperlipidemia, unspecified; I10 Essential (primary) hypertension; Z86.73 Personal history of transient ischemic attack (TIA), and cerebral infarction without residual deficits
CPT/HCPCS: 99283

== ENCOUNTER 2021-10-09 04:05 | Inpatient (IN) | payer MEDICARE, SELFPAY ==
[2021-10-09] VITALS (20 sets, daily range): BP systolic 116–190; BP diastolic 54–107; PULSE 70–106; RESP 13–21; TEMP 36.6–37.5; O2SAT 97–100; BMI 36.1
--- NOTE | ~2021-10-09 | MR_ITS ---
EXAMINATION: MR lumbar spine wo/w con DATE: 10/10/2021 12:57 INDICATION: Lower extremity weakness. TECHNIQUE: Magnetic resonance imaging (MRI) of the lumbar spine was performed without and with 20 mL MultiHance intravenous contrast. Sequences included sagittal T2-weighted FSE, sagittal T2-weighted FS FSE, sagittal T1-weighted FSE, and axial T2-weighted FSE. COMPARISON: CT abdomen and pelvis 10/09/2021 FINDINGS: S1 is age is initial segment. Bone alignment is normal. Vertebral body heights and interver tebral disc heights are normal. The distal spinal cord signal intensity is normal. The conus medullar is is at L1. The following disc levels are specifically discussed: L1-L2: The disc does not extend beyond the endplate margin. There is mild bilateral facet joint osteo arthritis. There is no neural foraminal stenosis. There is no central canal stenosis. L2-L3: The disc does not extend beyond the endplate margin. There is severe bilateral facet joint ost eoarthritis. There is mild bilateral neural foraminal stenosis. There is no central canal stenosis. L3-L4: The disc is bulging. There is severe bilateral facet joint osteoarthritis. There is mild bilat eral neural foraminal stenosis. There is no central canal stenosis. L4-L5: The disc is bulging. There is severe bilateral facet joint osteoarthritis. There is mild bilat eral neural foraminal stenosis. There is no central canal stenosis. L5-S1: The disc does not extend beyond the endplate margin. There is an annular fissure. There is ank ylosis of the facet joints with moderate hypertrophy. There is no neural foraminal stenosis. There is no central canal stenosis. IMPRESSION: 1. Mild lumbar spondylosis. Reviewed, dictated and finalized at location [facility]. MINATING ENGINEER IMPRESSION: 1. Mild lumbar spondylosis.
--- NOTE | ~2021-10-09 | CT_ITS ---
EXAMINATION: CT brain wo con DATE: 10/09/2021 08:54 INDICATION: Slurred speech. Leg paresis. History of cerebrovascular accident. TECHNIQUE: Computed tomography (CT) of the head was performed without intravenous contrast. The mA wa s adjusted according to patient size. Iterative reconstruction technique was employed. Exam dose: 68 1.00 mGy-cm total exam DLP. COMPARISON: None FINDINGS: Bilateral carotid siphon internal carotid artery calcifications. Chronic bilateral lacunar infarcts of the brainstem are suggested. Bilateral chronic lacunar infarcts of the thalami. There is nonspecific diminished attenuation of the subcortical and periventricular cerebral white mat ter, likely due to chronic small vessel ischemic change. No intracranial mass lesion or hemorrhage or recent cerebrovascular accident is evident. CT is not se nsitive for detection of hyperacute nonhemorrhagic cerebrovascular accident. No subdural or epidural hematoma. No fracture or bone destruction of the cranial vault. The paranasal sinuses and mastoid air cells are normally developed and aerated. IMPRESSION: Cerebral atherosclerosis and chronic small vessel ischemic changes of the cerebral white matter Chronic bilateral lacunar infarcts of the brainstem and thalami are suggested Reviewed, dictated and finalized at [facility]. Reviewed, dictated and finalized at location [facility]. ROL SPECIALIST
--- NOTE | ~2021-10-09 | CT_ITS ---
EXAMINATION: CT abdomen pelvis w con DATE: 10/09/2021 06:39 INDICATION: Upper abdominal pain. Nausea. TECHNIQUE: Computed tomography (CT) of the abdomen and pelvis was performed with 100 cc Omnipaque 350 intravenous contrast. Automated exposure control and iterative reconstruction technique were employe d. Exam dose: 1632.54 mGy-cm total exam DLP. COMPARISON: None. FINDINGS: There is cholelithiasis. There is gallbladder wall thickening. Consider chronic and possibl y acute cholecystitis. There is an approximately 3.3 x 3.7 cm circumscribed hypoattenuating mass of the left side of the bod y of the pancreas, with some focal left anterolateral wall calcification. Differential diagnosis incl udes benign or malignant lesions including pancreatic pseudocyst versus intraductal papillary mucinou s neoplasm, mucinous cystic neoplasm, serous cystadenoma, neuroendocrine tumor. An approximately 1.5 x 1.7 cm left adrenal mass is noted. Detail is limited due to streak artifact fr om overlapping upper extremities. Differential diagnosis includes adrenal adenoma versus metastasis o r less likely an adrenal carcinoma. No hepatic, splenic, right adrenal or renal space-occupying mass lesion is evident. There is an appro ximately 2.8 mm nonobstructing lower pole left renal calculus. No apparent ureteral calculus or hydro ureteronephrosis of either kidney. There is extensive calcification of the abdominal aorta, iliac arteries as well as calcification at t he origins of the renal arteries, especially prominent on the left. No abdominal or pelvic lymphadenopathy is noted. Mildly enlarged lobular uterus suggestive with some calcifications, suggesting fibroid change. The ur inary bladder is unremarkable. There are numerous diverticula of the sigmoid and descending colon as well as transverse and right co mayela; no CT evidence of diverticulitis. There is some focal soft tissue prominence of the proximal sigmoid colon; recommend colon screening i f the patient has not had recent barium enema or colonoscopy. No bowel obstruction or intraperitoneal free air is noted. Fat-containing inguinal hernias, more prominent on the right. There are some shoddy nonenlarged bilat eral inguinal lymph nodes. The lung bases are clear of infiltrate or consolidation. No pericardial or pleural effusion. Degenerative changes of the thoracic and lumbar spine. No suspicious osteolytic or osteoblastic lesio ns are noted. IMPRESSION: Cholelithiasis and gallbladder wall thickening. Acute cholecystitis is not excluded. Approximately 3.3 x 3.7 cm circumscribed cystic mass of left side of body of pancreas with some focal peripheral calcification; differential diagnosis is given above 1.5 x 1.7 cm left adrenal mass; differential diagnosis is given above Nonobstructing small lower pole left renal calculus Diverticulosis of left and right colon; no CT evidence of diverticulitis Focal nonspecific soft tissue prominence of proximal sigmoid colon; recommend colon workup if this perez s not been done recently. Fibroid uterus Reviewed, dictated and finalized at [facility]. Reviewed, dictated and finalized at [facility]. DING MOVER IMPRESSION: Cholelithiasis and gallbladder wall thickening. Acute cholecystiti s is not excluded. Approximately 3.3 x 3.7 cm circumscribed cystic mass of left side of body of pa ncreas with some focal peripheral calcification; differential diagnosis is give n above 1.5 x 1.7 cm left adrenal mass; differential diagnosis is given above Nonobstructing small lower pole left renal calculus Diverticulosis of left and right colon; no CT evidence of diverticulitis Focal nonspecific soft tissue prominence of proximal sigmoid colon; recommend c olon workup if this has not been d
--- NOTE | ~2021-10-09 | NM_ITS ---
EXAMINATION: NM hepatobiliary wo pharm DATE: 10/10/2021 12:06 INDICATION: Acute cholecystitis. COMPARISON: CT abdomen and pelvis 10/09/2021 TECHNIQUE: 4.8 mCi Tc-99m mebrofenin (Choletec) was administered intravenously. Scintigraphic images of the abdomen were obtained for one hour. Delayed images were obtained at 3 hours. FINDINGS: There is normal clearance of radiotracer from the blood pool. There is increased activity i n the liver at the gallbladder fossa. Activity progresses to the bowel. There is no activity in the g allbladder. IMPRESSION: 1. Acute cholecystitis. Reviewed, dictated and finalized at [facility] MOBILE SERVICE WRITER IMPRESSION: 1. Acute cholecystitis.
--- NOTE | 2021-10-09 04:49 | ED.ABDPAIN ---
HPI - Abdominal Pain General Chief Complaint: Abdominal Pain <Alonso Cassidy MD - Last Filed: 10/09/21 04:51> Stated Complaint: UPPER QUAD ABD PAIN SINCE YEST <Alonso Cassidy MD - Last Filed: 10/09/21 04:51> Time Seen by Provider: 10/09/21 04:48 <Alonso Cassidy MD - Last Filed: 10/09/21 04:51> Source: patient and EMS <Alonso Cassidy MD - Last Filed: 10/09/21 04:51> Mode of arrival: EMS <Alonso Cassidy MD - Last Filed: 10/09/21 04:51> Limitations: other (History of CVA) <Alonso Cassidy MD - Last Filed: 10/09/21 04:51> History of Present Illness HPI narrative: Patient is a 60-year-old female complaining of abdominal pain, right upper quadrant, moderate, nonradiating started yesterday. Patient denies any chest pain, shortness of breath, nausea, vomiting, diarrhea, fever or chills. <Alonso Cassidy MD - Last Filed: 10/09/21 04:51> Related Data Home Medications: Home Medications Medication Instructions Recorded Confirmed amlodipine 05/25/21 aspirin 05/25/21 atorvastatin 05/25/21 clonidine HCl 05/25/21 clopidogrel 05/25/21 duloxetine mg PO 05/25/21 famotidine 05/25/21 gabapentin 05/25/21 hydroxyzine HCl 05/25/21 lisinopril 05/25/21 trazodone 05/25/21 <Alonso Cassidy MD - Last Filed: 10/09/21 04:51> Allergies/Adverse Reactions: Allergies Allergy/AdvReac Type Severity Reaction Status Date / Time Penicillins Allergy Intermediate Hives Verified 10/09/21 04:32 <Alonso Cassidy MD - Last Filed: 10/09/21 04:51> Review of Systems Review of Systems: All systems reviewed & are unremarkable except as noted in HPI and below <Alonso Cassidy MD - Last Filed: 10/09/21 04:51> Constitutional: Constitutional: Denies body ache(s), Denies chills, Denies excessive sweating, Denies fatigue, Denies fever(s), Denies headache(s), Denies lethargy, Denies malaise, Denies weakness and Denies weight loss <Alonso Cassidy MD - Last Filed: 10/09/21 04:51> Eyes: Eyes: Denies blurry vision, Denies change in vision and Denies loss of vision <Alonso Cassidy MD - Last Filed: 10/09/21 04:51> ENT: Denies dizziness, Denies ear discharge, Denies headache(s), Denies lip swelling, Denies epistaxis, Denies nasal congestion, Denies neck pain, Denies throat swelling and Denies tongue swelling <Alonso Cassidy MD - Last Filed: 10/09/21 04:51> Cardiovascular: Cardiovascular: Denies chest pain, Denies chest pain at rest, Denies chest pain with activity, Denies diaphoresis, Denies rapid heart rate, Denies edema, Denies irregular heart rhythm, Denies lightheadedness, Denies palpitations, Denies dyspnea and Denies dyspnea on exertion <Alonso Cassidy MD - Last Filed: 10/09/21 04:51> Respiratory: Respiratory: Denies chest congestion, Denies cough, Denies hemoptysis, Denies dyspnea and Denies dyspnea on exertion <Alonso Cassidy MD - Last Filed: 10/09/21 04:51> Gastrointestinal: Gastrointestinal: Denies melena, Denies hematochezia, Denies diarrhea, Denies nausea, Denies vomiting and Denies hematemesis <Alonso Cassidy MD - Last Filed: 10/09/21 04:51> Musculoskeletal: Musculoskeletal: Denies abnormal gait, Denies deformity, Denies joint swelling, Denies limited range of motion, Denies neck pain and Denies numbness <Alonso Cassidy MD - Last Filed: 10/09/21 04:51> Neurologic: Denies Abnormal speech present, Denies abnormal gait, Denies confusion, Denies dizziness, Denies headache(s), Denies focal weakness, Denies loss of vision, Denies numbness, Denies Other visual disturbances, Denies Sensory deficit (Neuro) and Denies weakness <Alonso Cassidy MD - Last Filed: 10/09/21 04:51> Psychiatric: Psychiatric: Denies confusion, Denies depression, Denies auditory hallucinations, Denies homicidal ideation and Denies suicidal ideation <Alonso Cassidy MD - Last Filed: 10/09/21 04:51> Endocrine: Endocrine: Denies cold intolerance,
[2021-10-09 06:01] LABS: Basophils Percent Auto 0.3 % (0.2-1.2); Hematocrit 35.8 % (37.0-47.0); Hemoglobin 11.7 g/dL (12.0-15.0); Immature Granulocyte Absolute 0.06 K/mm3 (0.00-0.031); Immature Granulocyte Percent A 0.5 % (0-0.5); Lymphocytes Absolute Auto 1.65 K/mm3 (0.9-3.2); Mean Corpuscular HGB Conc 32.7 g/dl (32-36); Mean Corpuscular Hemoglobin 29.1 pg (26-34); Mean Corpuscular Volume 89.1 fl (80-100); Mean Platelet Volume 9.3 fl (7.4-10.4); Monocytes Absolute Auto 0.5 K/mm3 (0.1-0.6); Monocytes Percent Auto 4.2 % (2.6-8.5); Neutrophils Absolute Auto 9.6 K/mm3 (1.3-6.7); Platelet Count Result 333 k/mm3 (150-375); Red Blood Count 4.02 M/mm3 (4.2-5.4); Red Cell Distribution Width 13.5 % (11.5-14.5); White Blood Count 11.8 K/mm3 (4.5-10.0)
[2021-10-09 06:06] LABS: Prothrombin Time 12.6 Seconds (11.1-14.7)
[2021-10-09 06:07] LABS: Partial Thromboplastin Time 33.7 SECONDS (22.3-36.8)
[2021-10-09 06:12] LABS: Alanine Aminotransferase 27 U/L (4-35); Albumin Level 4.9 g/dL (3.5-5.1); Alkaline Phosphatase 127 U/L (38-126); Anion Gap 14 mmol/L (8-16); Aspartate Amino Transferase 32 U/L (14-36); Bilirubin,Total 0.4 mg/dL (0.2-1.3); Blood Urea Nitrogen 13 mg/dL (7-17); Calcium 10.1 mg/dL (8.4-10.2); Carbon Dioxide 25 mmol/L (22-30); Chloride 100 mmol/L (98-107); Estimated Glomerular Filt Rate > 60; Glucose 135 mg/dL (65-110); Lactic Acid Reflex 2.9 mmol/L (0.7-2.1); Lipase 61 U/L (23-300); Potassium 3.7 mmol/L (3.4-5.0); Sodium 139 mmol/L (137-145)
[2021-10-09] MEDS: ONDANSETRON INJ 4 MG/2 ML VIAL IV PUSH (07:06)
[2021-10-09] MEDS: HYDROmorphone HCL INJ (*CRX) 1 MG/ML SYR 0.5 MG IV PUSH (07:07)
[2021-10-09] MEDS: LACTATED RINGERS 1,000 ML 250 ML IV CONT (07:09)
[2021-10-09 08:54] LABS: Reflex Lactic Acid Yes or No Add Lactic
--- NOTE | 2021-10-09 14:21 | ADMGEN ---
This patient, Nicole Ryaa, was admitted to Medical Room 346-01. Patient/family oriented to hospital policies and general routines including ID bracelet, bed and alarms, visiting hours, pain management, procedures, bathroom and other care routines, personal items, smoking policy, room service/diet, and visiting hours. Information on how to activate the Rapid Response Team has been discussed. Patient/Family are encouraged to report perceived risks to care and to ask questions if they do not understand what they are told or what they should do.
--- NOTE | 2021-10-09 15:10 | PCWOUND ---
WOCN NOTE received notice for possible pressure. spoke to RN, mistake in charting. no pressure to assess.
--- NOTE | 2021-10-09 16:07 | PM.IMHP ---
H&P: HPI History of Present Illness Date/Time: 10/09/21 16:07 Chief Complaint: Abdominal pain. Narrative: Patient is a 60-year-old female with past medical history including but not limited to CVA, hypertension, depression, and arthritis presented to the ED complaining of abdominal pain, right upper quadrant, moderate, nonradiating started yesterday. Patient denies any chest pain, shortness of breath, nausea, vomiting, diarrhea, fever or chills Review of Systems Review of Systems: All systems reviewed & are unremarkable except as noted in HPI and below ROS unobtainable: Yes other (limited due to stroke, poor historian) Constitutional: Constitutional: Denies body ache(s), Denies chills, Denies excessive sweating, Denies fatigue, Denies fever(s), Denies headache(s), Denies lethargy, Denies malaise, Denies weakness and Denies weight loss Eyes: Eyes: Denies blurry vision, Denies change in vision and Denies loss of vision ENT: Denies dizziness, Denies ear discharge, Denies headache(s), Denies lip swelling, Denies epistaxis, Denies nasal congestion, Denies neck pain, Denies throat swelling and Denies tongue swelling Cardiovascular: Cardiovascular: Denies chest pain, Denies chest pain at rest, Denies chest pain with activity, Denies diaphoresis, Denies rapid heart rate, Denies edema, Denies irregular heart rhythm, Denies lightheadedness, Denies palpitations, Denies dyspnea and Denies dyspnea on exertion Respiratory: Respiratory: Denies chest congestion, Denies cough, Denies hemoptysis, Denies dyspnea and Denies dyspnea on exertion Gastrointestinal: Gastrointestinal: Denies melena, Denies hematochezia, Denies diarrhea, Denies nausea, Denies vomiting and Denies hematemesis Musculoskeletal: Musculoskeletal: Denies abnormal gait, Denies deformity, Denies joint swelling, Denies limited range of motion, Denies neck pain and Denies numbness Neurologic: Reports Abnormal speech present, Denies abnormal gait, Reports confusion, Denies dizziness, Denies headache(s), Denies focal weakness, Denies loss of vision, Denies numbness, Denies Other visual disturbances, Denies Sensory deficit (Neuro) and Denies weakness Psychiatric: Psychiatric: Reports confusion, Denies depression, Denies auditory hallucinations, Denies homicidal ideation and Denies suicidal ideation Endocrine: Endocrine: Denies cold intolerance, Denies excessive sweating, Denies fatigue, Denies heat intolerance and Denies palpitations Hematologic/Lymphatic: Hematologic/Lymphatic: Denies easy bleeding and Denies easy bruising Allergic/Immunologic: Allergic/Immunologic: Denies lip swelling, Denies throat swelling and Denies tongue swelling PMFSH Past Medical History Medical History History of CVA (cerebrovascular accident) History of gastrostomy tube placement S/p stroke had G-tube which has since been removed. History of hyperlipidemia History of hypertension Surgical History Surgical History History of tubal ligation Family History Family History Father of unknown cause Mother Heart attack Hypertension Social History Social History Smoking packs per day: 1 Smoking cigarettes per day: 20.0 Years smoked: 30 Smoking pack-years: 30.00 Smoking status: Current some day smoker Tobacco type: cigarettes Second hand tobacco smoke exposure: Yes Alcohol intake: former Drinks per week: 0 Substance use: current Other substance usage details: smoke cigarettes sometimes Spiritual care concerns: No Meds Home Medications and Allergies Home Medications Medication Instructions Recorded Confirmed Type acetaminophen [Mapap 650 mg PO Q4H PRN #50 tablet 08/08/20 10/09/21 Rx (acetaminophen)] aspirin 81 mg PO DAILY #30 tablet 08/08/20 10/09/21 Rx clopido
--- NOTE | 2021-10-09 16:42 | PM.CNGS ---
Assessment and Plan Assessment and plan (1) Cholelithiasis and cholecystitis without obstruction: Code(s): K80.10 - Calculus of gallbladder with chronic cholecystitis without obstruction Status: Acute Assessment and Plan: CT scan reviewed and discussed in detail with the patient. She has evidence of cholelithiasis with gallbladder wall thickening. WBC slightly elevated. LFTs and lipase normal. She is denying any abdominal pain and is nontender on exam. HIDA scan ordered. Will await these results to rule out acute cholecystitis. If there is cystic duct obstruction, then we will need to consider further intervention. If this appears to be chronic cholecystitis, then would recommend following a low fat diet. The patient would be a higher risk surgical candidate given her multiple co-morbidities and antiplatelet use. Continue IV Ancef and await HIDA scan results. Repeat labs tomorrow morning. (2) Weakness of both lower extremities: Code(s): R29.898 - Other symptoms and signs involving the musculoskeletal system Status: Acute Assessment and Plan: Unclear if this is acute or chronic following her stroke. CT head showed no acute abnormalities. MRI spine ordered. Neurology consulted. (3) Pancreatic mass: Code(s): K86.89 - Other specified diseases of pancreas Status: Acute Assessment and Plan: Incidentally noted on CT scan. Not her acute issue, but need further investigation that could be done as an outpatient. (4) Adrenal mass: Code(s): E27.8 - Other specified disorders of adrenal gland Status: Acute Assessment and Plan: Incidentally noted on CT scan. (5) Abnormal CT of the abdomen: Code(s): R93.5 - Abnormal findings on diagnostic imaging of other abdominal regions, including retroperitoneum Status: Acute Assessment and Plan: Soft tissue prominence of the proximal sigmoid colon. Patient denies history of a colonoscopy, although her history is limited by her confusion. Would recommend a colonoscopy to further evaluate this area. Could consider GI consult while inpatient? (6) Antiplatelet or antithrombotic long-term use: Code(s): Z79.02 - [employer] (current) use of antithrombotics/antiplatelets Status: Acute Assessment and Plan: On Plavix, unclear of last dose. Hold Plavix until HIDA scan results, see above. (7) Stroke due to embolism: Code(s): I63.9 - Cerebral infarction, unspecified Status: Acute Assessment and Plan: July 2020 with residual right-sided weakness, dysphagia, and slurred speech. (8) Hypertension: Code(s): I10 - Essential (primary) hypertension Status: Acute (9) Obesity (BMI 30-39.9): Code(s): E66.9 - Obesity, unspecified Status: Acute Additional Plan I have discussed the patient's case and plan of care with Dr. Henderson. Thank you for allowing us to see the patient in consultation and we will continue to follow along with you. History of Present Illness Consult details Consult date: 10/09/21 Reason for consult: gallstones (cholelithiasis with gallbladder wall thickening on CT scan) Requesting physician: Kermit Abreu MD Narrative: This is a 60-year-old female with a history of hypertension, hyperlipidemia, and stroke with residual right-sided weakness, slurred speech, and dysphagia who resides at a longterm facility. She is able to answer questions, but at times is difficult to understand due to her slurred speech. She is confused when questioning her history, although is oriented to place and person but not time. She is poor historian, therefore her history is also obtained by review of her EMR. Per the ER documentation, she presented with RUQ abdominal pain x 1 day and new lower extremity weakness. Labs showed a white blood cell count of 11,800, normal LFTs, normal lipase, and lactic acid 2.9. CT scan of the abdomen and pelvis showed gallbladder
[2021-10-09] MEDS: hydrOXYzine HCL 10 MG TABLET PO (22:48)
[2021-10-09] MEDS: GABAPENTIN 300 MG CAPSULE PO (22:48)
[2021-10-09] MEDS: cloNIDine HCL 0.1 MG TABLET PO (22:49)
[2021-10-10] VITALS (10 sets, daily range): BP systolic 138–169; BP diastolic 71–78; PULSE 71–94; RESP 18–20; TEMP 36.3–37.2; O2SAT 98–100; BMI 11.0
[2021-10-10 06:35] LABS: Lactic Acid Reflex 0.7 mmol/L (0.7-2.1)
[2021-10-10 06:36] LABS: Alanine Aminotransferase 19 U/L (4-35); Albumin Level 4.3 g/dL (3.5-5.1); Alkaline Phosphatase 104 U/L (38-126); Anion Gap 10 mmol/L (8-16); Aspartate Amino Transferase 27 U/L (14-36); Bilirubin,Total 0.7 mg/dL (0.2-1.3); Blood Urea Nitrogen 15 mg/dL (7-17); Calcium 9.4 mg/dL (8.4-10.2); Carbon Dioxide 26 mmol/L (22-30); Chloride 101 mmol/L (98-107); Estimated CRCL calculation 70 ml/min; Estimated Glomerular Filt Rate > 60; Glucose 118 mg/dL (65-110); Lipase 57 U/L (23-300); Potassium 3.2 mmol/L (3.4-5.0); Sodium 137 mmol/L (137-145)
[2021-10-10 06:43] LABS: Basophils Percent Auto 0.3 % (0.2-1.2); Eosinophils Percent Auto 0.2 % (0-4.4); Hematocrit 33.7 % (37.0-47.0); Immature Granulocyte Absolute 0.05 K/mm3 (0.00-0.031); Immature Granulocyte Percent A 0.5 % (0-0.5); Lymphocytes Absolute Auto 2.93 K/mm3 (0.9-3.2); Lymphocytes Percent Auto 26.9 % (18.3-44.2); Mean Corpuscular HGB Conc 32.6 g/dl (32-36); Mean Corpuscular Hemoglobin 29.3 pg (26-34); Mean Corpuscular Volume 89.6 fl (80-100); Mean Platelet Volume 9.3 fl (7.4-10.4); Monocytes Absolute Auto 0.9 K/mm3 (0.1-0.6); Monocytes Percent Auto 8.1 % (2.6-8.5); Platelet Count Result 308 k/mm3 (150-375); Red Blood Count 3.76 M/mm3 (4.2-5.4); Red Cell Distribution Width 14.2 % (11.5-14.5); White Blood Count 10.9 K/mm3 (4.5-10.0)
--- NOTE | 2021-10-10 11:38 | PM.IMPN ---
Progress Note: A&P Assessment and Plan (1) Cholelithiasis and cholecystitis without obstruction: Code(s): K80.10 - Calculus of gallbladder with chronic cholecystitis without obstruction Status: Acute Assessment and Plan: Asymptomatic acute cholecystitis. Patient was started on ancef and evaluated by surgery. She has evidence of cholelithiasis with gallbladder wall thickening. WBC slightly elevated. LFTs and lipase normal. She is denying any abdominal pain and abdomen is nontender on exam. HIDA scan ordered. continue low fat diet. Continue IV Ancef. HIDA scan confirmed acute cholecystitis. (2) Weakness of both lower extremities: Code(s): R29.898 - Other symptoms and signs involving the musculoskeletal system Status: Acute Assessment and Plan: Unclear if this is acute or chronic following her stroke. CT head showed no acute abnormalities. MRI spine did not reveal any acute abnormalities. Neurology consulted. (3) Pancreatic mass: Code(s): K86.89 - Other specified diseases of pancreas Status: Acute Assessment and Plan: Incidentally noted on CT scan. Not her acute issue, but need further investigation that could be done as an outpatient. (4) Adrenal mass: Code(s): E27.8 - Other specified disorders of adrenal gland Status: Acute Assessment and Plan: Incidentally noted on CT scan. (5) Abnormal CT of the abdomen: Code(s): R93.5 - Abnormal findings on diagnostic imaging of other abdominal regions, including retroperitoneum Status: Acute Assessment and Plan: Soft tissue prominence of the proximal sigmoid colon. Patient denies history of a colonoscopy, although her history is limited by her dysarthria. GI consult while inpatient, given mobility issues. (6) Antiplatelet or antithrombotic long-term use: Code(s): Z79.02 - intermediate designer (current) use of antithrombotics/antiplatelets Status: Acute Assessment and Plan: On Plavix, unclear of last dose, for secondary prevention of CVA. Hold Plavix until HIDA scan results. (7) Stroke due to embolism: Code(s): I63.9 - Cerebral infarction, unspecified Status: Acute Assessment and Plan: July 2020 with residual right-sided weakness, dysphagia, and slurred speech. (8) Hypertension: Code(s): I10 - Essential (primary) hypertension Status: Acute Assessment and Plan: Continue home BP medications. Blood pressure moderately controlled with measurement in the 156/74-169/78 range. Continue amlodipine 10 mg p.o. daily. Continue clonidine 0.1 mg p.o. t.i.d. Continue lisinopril 40 mg p.o. daily. 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 Subjective Date/time seen: 10/10/21 11:38 S: Patient was seen and examined at the bedside. She denies any abdominal pain. She reports persistent bilateral lower extremity weakness. Review of Systems Review of Systems: All systems reviewed & are unremarkable except as noted in HPI and below Constitutional: Constitutional: Reports as per HPI and Reports no additional constitutional complaints Eyes: Eyes: Reports as per HPI and Reports no additional eye complaints ENT: Reports system reviewed and no additional complaints, except as documented and Reports as per HPI Cardiovascular: Cardiovascular: Reports as per HPI and Reports no additional cardiovascular complaints Respiratory: Respiratory: Reports as per HPI and Reports no additional respiratory complaints Gastrointestinal: Gastrointestinal: Reports as per HPI, Reports no additional gastrointestinal complaints, Denies abdominal pain, Denies nausea and Denies vomiting Genitourinary: Genitourinary: Reports no additional female genitourinary complaints and Reports as per HPI Musculoskeletal: Musculoskeletal: Reports muscle weak
[2021-10-10] MEDS: ARIPiprazole 2 MG TABLET PO (13:29)
[2021-10-10] MEDS: ATORVASTATIN 40 MG TABLET 80 MG PO (13:29)
[2021-10-10] MEDS: amLODIPine BESYLATE 5 MG TABLET 10 MG PO (13:29)
[2021-10-10] MEDS: ASPIRIN 81 MG CHEWABLE TABLET PO (13:29)
[2021-10-10] MEDS: lisinopriL 20 MG TABLET 40 MG PO (13:30)
[2021-10-10] MEDS: CLOPIDOGREL BISULFATE 75 MG TABLET PO (13:30)
[2021-10-10] MEDS: GABAPENTIN 300 MG CAPSULE PO ×2 (13:30→21:20)
[2021-10-10] MEDS: hydrOXYzine HCL 10 MG TABLET PO ×2 (13:31→21:21)
--- NOTE | 2021-10-10 13:39 | PM.PNGS ---
Progress Note: A&P Assessment and Plan (1) Cholelithiasis and cholecystitis without obstruction: Code(s): K80.10 - Calculus of gallbladder with chronic cholecystitis without obstruction Status: Acute Assessment and Plan: CT scan showed cholelithiasis with gallbladder wall thickening, possible acute versus chronic cholecystitis. Patient still not having any abdominal pain or tenderness on exam. WBC down to 10,000, LFTs and lipase normal again today. Lactic down to normal today. HIDA scan showed acute cholecystitis. Will allow her to try clear liquids today and make her NPO after midnight. Will consider proceeding conservative management vs placement of a percutaneous cholecystostomy tube vs laparoscopic cholecystectomy in the next few days since she is not having any abdominal pain and seems to be improving. Given her antiplatelet therapy and multiple co-morbidities, she is a higher risk surgical candidate. Continue IV Ancef. Repeat labs tomorrow. (2) Weakness of both lower extremities: Code(s): R29.898 - Other symptoms and signs involving the musculoskeletal system Status: Acute Assessment and Plan: Unclear if this is acute or chronic following her stroke. CT head showed no acute abnormalities. MRI spine without acute abnormalities explaining weakness. Awaiting Neurology evaluation. (3) Pancreatic mass: Code(s): K86.89 - Other specified diseases of pancreas Status: Acute Assessment and Plan: Incidentally noted on CT scan. Not her acute issue, but will need further investigation that could be done as an outpatient. (4) Adrenal mass: Code(s): E27.8 - Other specified disorders of adrenal gland Status: Acute Assessment and Plan: Incidentally noted on CT scan. See above. (5) Abnormal CT of the abdomen: Code(s): R93.5 - Abnormal findings on diagnostic imaging of other abdominal regions, including retroperitoneum Status: Acute Assessment and Plan: Soft tissue prominence of the proximal sigmoid colon. Patient denies history of a colonoscopy, although her history is limited by her confusion. Would recommend a colonoscopy to further evaluate this area. Could consider GI consult or outpatient referral. (6) Antiplatelet or antithrombotic long-term use: Code(s): Z79.02 - penitentiary (current) use of antithrombotics/antiplatelets Status: Acute Assessment and Plan: Plavix was restarted this afternoon, she received a dose today. Will put Plavix back on hold for possible intervention. (7) Stroke due to embolism: Code(s): I63.9 - Cerebral infarction, unspecified Status: Acute Assessment and Plan: July 2020 with residual right-sided weakness, dysphagia, and slurred speech. (8) Hypertension: Code(s): I10 - Essential (primary) hypertension Status: Acute (9) Obesity (BMI 30-39.9): Code(s): E66.9 - Obesity, unspecified Status: Acute Additional Plan I have discussed the patient's case and plan of care with Dr. Henderson. Subjective Subjective Date/Time Seen: 10/10/21 11:39 Patient reports: no new complaints and afebrile Interval history: Patient seen and examined today. No specific complaints. Denies abdominal pain or nausea. She has been NPO this morning for HIDA scan. No acute issues overnight per nursing. Review of Systems Review of Systems: ROS unobtainable: Yes other (limited d/t slurred speech and stroke) Exam Const: General: no acute distress, alert and awake Nutritional Appearance: obese Orientation/consciousness: oriented to person, oriented to place and confusion GI: Inspection: non-distended, scar (small periumbilical scar, small epigastric scar from previous G-tube) and no visible herniation GI Palp: Yes Soft to palpation, No Tenderness to palpation present (GI), No Guarding due to palpation present (GI) and No Rebound tenderness present Auscultation: normal deepak
[2021-10-10] MEDS: cloNIDine HCL 0.1 MG TABLET PO ×2 (13:42→18:55)
[2021-10-10] MEDS: FAMOTIDINE 20 MG TABLET PO (13:42)
[2021-10-11] VITALS (10 sets, daily range): BP systolic 136–150; BP diastolic 73–77; PULSE 60–79; RESP 18–20; TEMP 36.3–37.2; O2SAT 98–100
[2021-10-11] MEDS: lisinopriL 20 MG TABLET 40 MG PO (08:12)
[2021-10-11] MEDS: hydrOXYzine HCL 10 MG TABLET PO ×2 (08:12→21:00)
[2021-10-11] MEDS: GABAPENTIN 300 MG CAPSULE PO ×2 (08:12→21:00)
[2021-10-11] MEDS: ATORVASTATIN 40 MG TABLET 80 MG PO (08:12)
[2021-10-11] MEDS: traMADol HCL (*CRX) 50 MG TABLET PO ×3 (08:13→17:55)
[2021-10-11] MEDS: cloNIDine HCL 0.1 MG TABLET PO ×3 (08:13→17:55)
[2021-10-11] MEDS: amLODIPine BESYLATE 5 MG TABLET 10 MG PO (08:13)
[2021-10-11] MEDS: ARIPiprazole 2 MG TABLET PO (08:13)
[2021-10-11] MEDS: FAMOTIDINE 20 MG TABLET PO ×2 (08:13→17:55)
[2021-10-11] MEDS: ASPIRIN 81 MG CHEWABLE TABLET PO (08:13)
--- NOTE | 2021-10-11 08:30 | PM.IMPN ---
Progress Note: A&P Assessment and Plan (1) Cholelithiasis and cholecystitis without obstruction: Code(s): K80.10 - Calculus of gallbladder with chronic cholecystitis without obstruction Status: Acute Assessment and Plan: Asymptomatic acute cholecystitis, Currently on IV antibiotic with Invanz. she is also being evaluated by surgery. She has evidence of cholelithiasis with gallbladder wall thickening. WBC slightly elevated. LFTs and lipase normal. She is denying any abdominal pain and abdomen is nontender on exam. HIDA scan confirms cholecystitis. Resume low fat diet. Continue IV Ancef. (2) Weakness of both lower extremities: Code(s): R29.898 - Other symptoms and signs involving the musculoskeletal system Status: Acute Assessment and Plan: Unclear if this is acute or chronic following her stroke. CT head showed no acute abnormalities. MRI spine did not reveal any acute abnormalities. Neurology consulted. (3) Pancreatic mass: Code(s): K86.89 - Other specified diseases of pancreas Status: Acute Assessment and Plan: Incidentally noted on CT scan. GI was consultedNot her acute issue, but need further investigation that could be done as an outpatient. (4) Adrenal mass: Code(s): E27.8 - Other specified disorders of adrenal gland Status: Acute Assessment and Plan: Incidentally noted on CT scan. (5) Abnormal CT of the abdomen: Code(s): R93.5 - Abnormal findings on diagnostic imaging of other abdominal regions, including retroperitoneum Status: Acute Assessment and Plan: Soft tissue prominence of the proximal sigmoid colon. Patient denies history of a colonoscopy, although her history is limited by her dysarthria. GI consult while inpatient, given mobility issues. (6) Antiplatelet or antithrombotic long-term use: Code(s): Z79.02 - longterm (current) use of antithrombotics/antiplatelets Status: Acute Assessment and Plan: On Plavix, unclear of last dose, for secondary prevention of CVA. who Plavix today. (7) Stroke due to embolism: Code(s): I63.9 - Cerebral infarction, unspecified Status: Acute Assessment and Plan: July 2020 with residual right-sided weakness, dysphagia, and slurred speech. (8) Hypertension: Code(s): I10 - Essential (primary) hypertension Status: Acute Assessment and Plan: Hypertension is moderately controlled with a blood pressure of 147/77 today. Continue home BP medications. Blood pressure Was elevated on admission with measurement in the 156/74-169/78 range. Continue amlodipine 10 mg p.o. daily. Continue clonidine 0.1 mg p.o. t.i.d. Continue lisinopril 40 mg p.o. daily. 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 Subjective Date/time seen: 10/11/21 08:30 S: Patient was seen and examined at the bedside. She denies any abdominal pain. She reports bilateral lower extremity swelling. Review of Systems Review of Systems: All systems reviewed & are unremarkable except as noted in HPI and below ROS unobtainable: Yes other (limited due to stroke, poor historian) Constitutional: Constitutional: Reports as per HPI, Reports no additional constitutional complaints, Denies body ache(s), Denies chills, Denies excessive sweating, Denies fatigue, Denies fever(s), Denies headache(s), Denies lethargy, Denies malaise, Reports weakness and Denies weight loss Eyes: Eyes: Reports as per HPI, Reports no additional eye complaints, Denies blurry vision, Denies change in vision and Denies loss of vision ENT: Reports system reviewed and no additional complaints, except as documented, Reports as per HPI, Denies dizziness, Denies ear discharge, Denies headache(s), Denies lip swelling, Denies epistaxis, Denies nasal congestion, Denies neck pain
[2021-10-11 09:57] LABS: Basophils Percent Auto 0.2 % (0.2-1.2); Eosinophils Percent Auto 0.1 % (0-4.4); Hematocrit 35.1 % (37.0-47.0); Hemoglobin 11.5 g/dL (12.0-15.0); Immature Granulocyte Absolute 0.03 K/mm3 (0.00-0.031); Immature Granulocyte Percent A 0.3 % (0-0.5); Lymphocytes Absolute Auto 1.93 K/mm3 (0.9-3.2); Mean Corpuscular HGB Conc 32.8 g/dl (32-36); Mean Corpuscular Volume 88.4 fl (80-100); Mean Platelet Volume 9.6 fl (7.4-10.4); Monocytes Absolute Auto 0.6 K/mm3 (0.1-0.6); Monocytes Percent Auto 6.6 % (2.6-8.5); Neutrophils Percent Auto 72.8 % (45.5-73.1); Platelet Count Result 322 k/mm3 (150-375); Red Blood Count 3.97 M/mm3 (4.2-5.4); Red Cell Distribution Width 13.9 % (11.5-14.5); White Blood Count 9.6 K/mm3 (4.5-10.0)
[2021-10-11 10:12] LABS: Alanine Aminotransferase 18 U/L (4-35); Albumin Level 4.3 g/dL (3.5-5.1); Alkaline Phosphatase 110 U/L (38-126); Anion Gap 13 mmol/L (8-16); Aspartate Amino Transferase 26 U/L (14-36); Bilirubin,Total 0.6 mg/dL (0.2-1.3); Blood Urea Nitrogen 16 mg/dL (7-17); Calcium 9.4 mg/dL (8.4-10.2); Carbon Dioxide 24 mmol/L (22-30); Chloride 101 mmol/L (98-107); Estimated CRCL calculation 70 ml/min; Estimated Glomerular Filt Rate > 60; Glucose 129 mg/dL (65-110); Potassium 3.2 mmol/L (3.4-5.0); Sodium 138 mmol/L (137-145)
--- NOTE | 2021-10-11 11:47 | WPDNEURCNPN ---
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 Cholelithiasis 3. Left adrenal mass and number for diverticulosis plan is the general treatment as being planned Consult date: 10/11/21 HPI: Nicole Raya is a 60 year old female admitted to the hospital for the complaints of abdominal pain. Neurology consultation obtained because patient has ongoing history of his stroke in the past in addition to hypertension, depression, and arthritis. Does have history of gastrostomy tube placement in the past with subsequent conversion to G-tube but has been removed, history of smoking years 30 and her outpatient medications included aspirin 81 mg daily clopidogrel 75 mg daily atorvastatin 80 mg daily in addition to antihypertensive medication as well Review of Systems Review of Systems: All systems reviewed & are unremarkable except as noted in HPI and below PMFSH Past Medical History Medical History History of CVA (cerebrovascular accident) History of gastrostomy tube placement S/p stroke had G-tube which has since been removed. History of hyperlipidemia History of hypertension Surgical History Surgical History History of tubal ligation Family History Family History Father of unknown cause Mother Heart attack Hypertension Social History Social History Smoking packs per day: 1 Smoking cigarettes per day: 20.0 Years smoked: 30 Smoking pack-years: 30.00 Smoking status: Current some day smoker Tobacco type: cigarettes Second hand tobacco smoke exposure: Yes Alcohol intake: former Drinks per week: 0 Substance use: current Other substance usage details: smoke cigarettes sometimes Spiritual care concerns: No Meds Home Medications and Allergies Home Medications Medication Instructions Recorded Confirmed Type acetaminophen [Mapap 650 mg PO Q4H PRN #50 tablet 08/08/20 10/09/21 Rx (acetaminophen)] aspirin 81 mg PO DAILY #30 tablet 08/08/20 10/09/21 Rx clopidogrel 75 mg PO DAILY #30 tablet 08/08/20 10/09/21 Rx atorvastatin 80 mg PO DAILY 05/25/21 10/09/21 History clonidine HCl 0.1 mg PO TID 05/25/21 10/09/21 History famotidine 20 mg PO BID 05/25/21 10/09/21 History gabapentin 300 mg PO BID 05/25/21 10/09/21 History hydroxyzine HCl 10 mg PO BID 05/25/21 10/09/21 History lisinopril 40 mg PO DAILY 05/25/21 10/09/21 History amlodipine [Norvasc] 10 mg PO DAILY 10/09/21 10/09/21 History aripiprazole [Abilify] 2 mg PO DAILY 10/09/21 10/09/21 History bisacodyl [Dulcolax (bisacodyl)] 10 mg RECTAL DAILY PRN 10/09/21 10/09/21 History miconazole-tolnaftate 2 % TOPICAL BID 10/09/21 10/09/21 History tramadol 50 mg PO TID 10/09/21 10/09/21 History Allergies Allergy/AdvReac Type Severity Reaction Status Date / Time Penicillins Allergy Intermediate Hives Verified 10/09/21 04:32 Vital Signs Vital Signs - 24 hr 10/10/21 12:00 10/10/21 14:00 10/10/21 16:00 Temperature 36.4 C L Pulse Rate 94 80 83 Respiratory Rate 20 Blood Pressure 156/74 H Pulse Oximetry 98 10/10/21 19:50 10/10/21 20:04 10/10/21 22:25 Temperature 36.3 C L 37.2 C Pulse Rate 71 75 73 Respiratory Rate 18 18 20 Blood Pressure 138/71 Pulse Oximetry 98 98 100 10/11/21 00:05 10/11/21 04:04 10/11/21 05:35 Temperature 37.2 C Pulse Rate 79 60 76 Respiratory Rate 20 Blood Pressure 147/77 H Pulse Oximetry 100 10/11/21 08:00 Temperature Pulse Rate 75 Respiratory Rate Blood Pressure Pulse Oximetry Exam Narrative: examination revealed her to be awake alert cooperative in no obvious acute distress. Head was normocephalic wi
--- NOTE | 2021-10-11 13:33 | PM.PNGS ---
Progress Note: A&P Assessment and Plan (1) Cholelithiasis and cholecystitis without obstruction: Code(s): K80.10 - Calculus of gallbladder with chronic cholecystitis without obstruction Status: Acute Assessment and Plan: CT scan showed cholelithiasis with gallbladder wall thickening, possible acute versus chronic cholecystitis. HIDA scan showed acute cholecystitis. Patient still not having any abdominal pain or tenderness on exam. WBC, LFTs and lipase normal today. Lactic normalized. I discussed options with the patient in great detail today - including trying conservative management with antibiotics (switching to oral antibiotics on discharge) and following a low fat diet to try and prevent future episodes, versus placement of a percutaneous cholecystostomy tube, versus proceeding with a laparoscopic cholecystectomy, possible open by Dr. Henderson under general anesthesia. Description of the procedure, risks, benefits, expected outcomes, and expected recovery were discussed with the patient in detail. All questions were answered. The patient would like to avoid surgery at this time, especially since she is not having any symptoms. She would like to try advancing on a diet and continuing with antibiotics and monitoring. With her stroke history and question of new neurological symptoms, this may be the best option at this time to avoid risks associated with surgery. We will see how she does overnight and repeat labs again tomorrow morning. If she tolerates a diet, she could potentially be sent home with oral antibiotics and would need to follow a low fat diet. She understands the risks of future complications with her gallbladder disease and would still prefer the conservative option. Continue IV Ancef. Will start her on a low fat diet. (2) Weakness of both lower extremities: Code(s): R29.898 - Other symptoms and signs involving the musculoskeletal system Status: Acute Assessment and Plan: Unclear if this is acute or chronic following her stroke. CT head showed no acute abnormalities. MRI spine without acute abnormalities explaining weakness. Neurology consulted. (3) Pancreatic mass: Code(s): K86.89 - Other specified diseases of pancreas Status: Acute Assessment and Plan: Incidentally noted on CT scan. Not her acute issue, but will need further investigation that could be done as an outpatient. (4) Adrenal mass: Code(s): E27.8 - Other specified disorders of adrenal gland Status: Acute Assessment and Plan: Incidentally noted on CT scan. See above. (5) Abnormal CT of the abdomen: Code(s): R93.5 - Abnormal findings on diagnostic imaging of other abdominal regions, including retroperitoneum Status: Acute Assessment and Plan: Soft tissue prominence of the proximal sigmoid colon. Patient denies history of a colonoscopy, but her history is somewhat limited. Would recommend a colonoscopy to further evaluate this area. Consider GI consult or outpatient referral. (6) Antiplatelet or antithrombotic long-term use: Code(s): Z79.02 - termite helper (current) use of antithrombotics/antiplatelets Status: Acute Assessment and Plan: Continue to HOLD Plavix for today until we see how she tolerates a diet by tomorrow, in case she does not tolerate a diet and requires further intervention. (7) Stroke due to embolism: Code(s): I63.9 - Cerebral infarction, unspecified Status: Acute (8) Hypertension: Code(s): I10 - Essential (primary) hypertension Status: Acute (9) Obesity (BMI 30-39.9): Code(s): E66.9 - Obesity, unspecified Status: Acute Additional Plan I have discussed the patient's case and plan of care with Dr. Henderson. The patient seems more alert and oriented today. She does seem appropriate to make her own decisions. I attempted to call her contact persons, her sister, Lesile, to question if the patient typicall
[2021-10-11] MEDS: POTASSIUM CHLORIDE 20 MEQ PACKET (FOR LIQUID) 40 MEQ PO (14:14)
--- NOTE | 2021-10-11 17:23 | WPDGICN ---
Assessment and Plan Assessment and plan (1) Cholelithiasis and cholecystitis without obstruction: Code(s): K80.10 - Calculus of gallbladder with chronic cholecystitis without obstruction Status: Acute Assessment and Plan: cholecystitis and surgery involved, given that she is responding to medical management and other several comorbidities with high risk, they are recommending antibiotic treatment for now (2) Pancreatic mass: Code(s): K86.89 - Other specified diseases of pancreas Status: Acute Assessment and Plan: incidental finding can complete work up as outpatient with endoscopic ultrasound of pancreas, we can refer out to another facility (3) Stroke due to embolism: Code(s): I63.9 - Cerebral infarction, unspecified Status: Acute Assessment and Plan: history of stroke, difficult to get history neurology on board (4) Aphasia: Code(s): R47.01 - Aphasia Status: Acute (5) Abnormal CT of the abdomen: Code(s): R93.5 - Abnormal findings on diagnostic imaging of other abdominal regions, including retroperitoneum Status: Acute Assessment and Plan: at some point will need a colonoscopy if she has not had one recently this can be done as outpatient (6) Hypertension: Code(s): I10 - Essential (primary) hypertension Status: Acute GI Consult Note Consult date/time: 10/11/21 17:23 Reason for consult: abdominal pain, pancreatic lesion, cholecystitis HPI: Nicole Raya is a 60 year old female with history of CVA with difficulty speech and hemiparesis, HTN, previous G-tube but removed who presented to ER with abdominal pain. I can not get good history because unable to complete sentences because history of stroke. CT scan a/p reviewed that showed cholelithiasis and gallbladder wall thickening, also 3.3 x 3.7 cm circumscribed cystic mass of left side of body of pancreas with some focal peripheral calcification; Diverticulosis of left and right colon; no CT evidence of diverticulitis; Focal nonspecific soft tissue prominence of proximal sigmoid colon. Her liver enzymes were normal and no abdominal pain now. HIDA scan consistent with cholecystitis and seeing by surgery, on iv antibiotics. Review of Systems Constitutional: Comments: chronic weakness Eyes: Eyes: Reports no additional eye complaints ENT: Reports Normal hearing present Cardiovascular: Cardiovascular: Denies chest pain Respiratory: Respiratory: Denies dyspnea Gastrointestinal: Gastrointestinal: Reports abdominal pain Genitourinary: Genitourinary: Denies hematuria Musculoskeletal: Musculoskeletal: Denies neck pain Integumentary/Breasts: Skin/Breast: Denies dry skin Neurologic: Comments: h/o stroke and limited speech PMFSH Past Medical History Medical History (Updated 10/11/21 @ 17:30 by Davi Gurrola MD) Aphasia History of CVA (cerebrovascular accident) History of gastrostomy tube placement S/p stroke had G-tube which has since been removed. History of hyperlipidemia History of hypertension Surgical History Surgical History History of tubal ligation Family History Family History Father of unknown cause Mother Heart attack Hypertension Social History Social History Smoking packs per day: 1 Smoking cigarettes per day: 20.0 Years smoked: 30 Smoking pack-years: 30.00 Smoking status: Current some day smoker Tobacco type: cigarettes Second hand tobacco smoke exposure: Yes Alcohol intake: former Drinks per week: 0 Substance use: current Other substance usage details: smoke cigarettes sometimes Spiritual care concerns: No Meds Home Medications and Allergies Home Medications Medication Instructions Recorded Confirmed Type acetaminophen [Mapap 650 mg
--- NOTE | 2021-10-11 18:35 | PC.NURSE ---
Per patient's daughter- patient has been wheelchair bound since her second stroke 3 months ago.
[2021-10-12] VITALS (8 sets, daily range): BP systolic 136–153; BP diastolic 55–94; PULSE 56–92; RESP 18–20; TEMP 36.1–36.9; O2SAT 98–99
[2021-10-12 06:16] LABS: Hematocrit 33.6 % (37.0-47.0); Hemoglobin 10.8 g/dL (12.0-15.0); Mean Corpuscular HGB Conc 32.1 g/dl (32-36); Mean Corpuscular Hemoglobin 29.3 pg (26-34); Mean Corpuscular Volume 91.3 fl (80-100); Mean Platelet Volume 9.6 fl (7.4-10.4); Platelet Count Result 319 k/mm3 (150-375); Red Blood Count 3.68 M/mm3 (4.2-5.4); Red Cell Distribution Width 14.1 % (11.5-14.5); White Blood Count 10.5 K/mm3 (4.5-10.0)
[2021-10-12 06:28] LABS: Alanine Aminotransferase 16 U/L (4-35); Albumin Level 3.9 g/dL (3.5-5.1); Alkaline Phosphatase 96 U/L (38-126); Anion Gap 10 mmol/L (8-16); Aspartate Amino Transferase 23 U/L (14-36); Bilirubin,Total 0.5 mg/dL (0.2-1.3); Blood Urea Nitrogen 24 mg/dL (7-17); Calcium 8.9 mg/dL (8.4-10.2); Carbon Dioxide 26 mmol/L (22-30); Chloride 101 mmol/L (98-107); Estimated CRCL calculation 36 ml/min; Estimated Glomerular Filt Rate 35; Glucose 108 mg/dL (65-110); Potassium 3.3 mmol/L (3.4-5.0); Sodium 137 mmol/L (137-145)
[2021-10-12] MEDS: amLODIPine BESYLATE 5 MG TABLET 10 MG PO (08:51)
[2021-10-12] MEDS: GABAPENTIN 300 MG CAPSULE PO ×2 (08:51→20:53)
[2021-10-12] MEDS: lisinopriL 20 MG TABLET 40 MG PO (08:51)
[2021-10-12] MEDS: ATORVASTATIN 40 MG TABLET 80 MG PO (08:51)
[2021-10-12] MEDS: ARIPiprazole 2 MG TABLET PO (08:51)
[2021-10-12] MEDS: hydrOXYzine HCL 10 MG TABLET PO ×2 (08:51→20:53)
[2021-10-12] MEDS: ASPIRIN 81 MG CHEWABLE TABLET PO (08:51)
[2021-10-12] MEDS: cloNIDine HCL 0.1 MG TABLET PO ×3 (08:53→17:03)
[2021-10-12] MEDS: FAMOTIDINE 20 MG TABLET PO ×2 (08:53→17:03)
--- NOTE | 2021-10-12 14:01 | PM.IMPN ---
Progress Note: A&P Assessment and Plan (1) Cholelithiasis and cholecystitis without obstruction: Code(s): K80.10 - Calculus of gallbladder with chronic cholecystitis without obstruction Status: Acute Assessment and Plan: Asymptomatic acute cholecystitis, Currently on IV antibiotic with Invanz. she is also being evaluated by surgery. She has evidence of cholelithiasis with gallbladder wall thickening. WBC slightly elevated. LFTs and lipase normal. She is denying any abdominal pain and abdomen is nontender on exam. HIDA scan confirms cholecystitis. Resume low fat diet. Continue IV Ancef. (2) Weakness of both lower extremities: Code(s): R29.898 - Other symptoms and signs involving the musculoskeletal system Status: Acute Assessment and Plan: Unclear if this is acute or chronic following her stroke. CT head showed no acute abnormalities. MRI spine did not reveal any acute abnormalities. Neurology consulted. (3) Pancreatic mass: Code(s): K86.89 - Other specified diseases of pancreas Status: Acute Assessment and Plan: Incidentally noted on CT scan. GI was consultedNot her acute issue, but need further investigation that could be done as an outpatient. (4) Adrenal mass: Code(s): E27.8 - Other specified disorders of adrenal gland Status: Acute Assessment and Plan: Incidentally noted on CT scan. (5) Abnormal CT of the abdomen: Code(s): R93.5 - Abnormal findings on diagnostic imaging of other abdominal regions, including retroperitoneum Status: Acute Assessment and Plan: Soft tissue prominence of the proximal sigmoid colon. Patient denies history of a colonoscopy, although her history is limited by her dysarthria. 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 (7) Stroke due to embolism: Code(s): I63.9 - Cerebral infarction, unspecified Status: Acute Assessment and Plan: July 2020 with residual right-sided weakness, dysphagia, and slurred speech. (8) Hypertension: Code(s): I10 - Essential (primary) hypertension Status: Acute Assessment and Plan: Hypertension is moderately controlled with a blood pressure of 139/80 6-153/94 today. Continue home BP medications. Blood pressure Was elevated on admission with measurement in the 156/74-169/78 range. Continue amlodipine 10 mg p.o. daily. Continue clonidine 0.1 mg p.o. t.i.d. Continue lisinopril 40 mg p.o. daily. 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 Subjective Date/time seen: 10/12/21 13:00 s: Patient was seen examined at the bedside. She reports constipation. No additional complaints. Review of Systems Review of Systems: All systems reviewed & are unremarkable except as noted in HPI and below ROS unobtainable: Yes other (limited due to stroke, poor historian) Constitutional: Constitutional: Reports as per HPI, Reports no additional constitutional complaints, Denies body ache(s), Denies chills, Denies excessive sweating, Denies fatigue, Denies fever(s), Denies headache(s), Denies lethargy, Denies malaise, Reports weakness and Denies weight loss Eyes: Eyes: Reports as per HPI, Reports no additional eye complaints, Denies blurry vision, Denies change in vision and Denies loss of vision ENT: Reports system reviewed and no additional complaints, except as documented, Reports as per HPI, Denies dizziness, Denies ear discharge, Denies headache(s), Denies lip swelling, Denies epistaxis, Denies nasal congestion, Denies neck pain, Denies throat swelling and Denies tongue swelling Cardiovascular: Cardiovascular
--- NOTE | 2021-10-12 17:05 | WPDGIPROGNO ---
Progress Note: A&P Assessment and Plan (1) Cholelithiasis and cholecystitis without obstruction: Code(s): K80.10 - Calculus of gallbladder with chronic cholecystitis without obstruction Status: Acute Assessment and Plan: surgery on board and decided best continue with medical treatment- she is now asymptomatic and doing well with antibiotics (2) Pancreatic mass: Code(s): K86.89 - Other specified diseases of pancreas Status: Acute Assessment and Plan: we can arrange EUS of pancreas as outpatient (3) Stroke due to embolism: Code(s): I63.9 - Cerebral infarction, unspecified Status: Acute Assessment and Plan: limitation of conversation (4) Aphasia: Code(s): R47.01 - Aphasia Status: Acute (5) Abnormal CT of the abdomen: Code(s): R93.5 - Abnormal findings on diagnostic imaging of other abdominal regions, including retroperitoneum Status: Acute Assessment and Plan: I asked her if she ever had colonoscopy and denies, probably can arrange as outpatient but says that would like to talk to daughter Subjective Date/time seen: 10/12/21 17:05 Interval history: patient has difficulty talking because stroke but understands, she denies abdominal pain Review of Systems Review of Systems: All systems reviewed & are unremarkable except as noted in HPI and below Exam Const: Other: aphasia, she is trying to talk but difficult to understand HENMT: General nose exam: Normal nares present Eyes: Sclera: sclerae normal Neck: Neck: supple Resp: Auscultation: clear to auscultation bilaterally Cardio: Rate: regular rate GI: GI Palp: Yes Soft to palpation, No Tenderness to palpation present (GI) and No Guarding due to palpation present (GI) Auscultation: normal bowel sounds Skin: General skin exam: no rashes or lesions noted Neuro: Other: aphasia, paresis Extrem: General: no edema Psych: Affect: normal affect Objective Data Vital Signs Vital Signs: Vital Signs - 24 hr 10/11/21 20:04 10/11/21 20:53 10/11/21 22:00 Temperature 97.3 F L Pulse Rate 66 71 Respiratory Rate 18 20 Blood Pressure 150/73 H Pulse Oximetry 99 99 10/12/21 00:05 10/12/21 04:04 10/12/21 06:30 Temperature 97 F L Pulse Rate 64 56 L 76 Respiratory Rate 20 Blood Pressure 153/94 H Pulse Oximetry 98 10/12/21 12:00 Temperature Pulse Rate 85 Respiratory Rate Blood Pressure Pulse Oximetry Intake/Output Intake/Output: Intake & Output 10/09/21 10/10/21 10/11/21 10/12/21 23:59 23:59 23:59 23:59 Intake Total 50 300 630 560 Balance 50 300 630 560 Meds/Results Medications: Active Medications Generic Name Dose Route Start Last Admin Trade Name Freq PRN Reason Stop Dose Admin Acetaminophen 650 mg 10/09/21 21:34 Acetaminophen 325 Mg Tablet PO Q4H PRN Pain 1-3 Or Fever Hydrocodone Bitart/Acetaminophen 1 tab 10/09/21 10:36 Hydrocodone/Acetaminophen (*Crx) 5-325 Mg Tablet PO Q4H PRN Pain Rated 4-6 Amlodipine Besylate 10 mg 10/10/21 09:00 10/12/21 08:51 Amlodipine Besylate 5 Mg Tablet PO 10 mg DAILY JAYY Administration Aripiprazole 2 mg 10/10/21 09:00 10/12/21 08:51 Aripiprazole 2 Mg Tablet PO 2 mg DAILY JAYY Administration Aspirin 81 mg 10/10/21 09:00 10/12/21 08:51 Aspirin 81 Mg Chewable Tablet PO 81 mg DAILY JAYY Administration Atorvastatin Calcium 80 mg 10/10/21 09:00 10/12/21 08:51 Atorvastatin 40 Mg Tablet PO 80 mg DAILY JAYY Administration Bisacodyl 10 mg 10/09/21 21:34 Bisacodyl 10 Mg Suppository RECTAL DAILY PRN Constipation Clonidine HCl 0.1 mg 10/09/21 21:45 10/12/21 13:06 Clonidine Hcl 0.1 Mg Tablet PO 0.1 mg TID JAYY Administration Clopidogrel Bisulfate 75 mg 10/10/21 09:00 10/10/21 13:30 Clopidogrel Bisulfate 75 Mg Tablet PO 75 mg DAILY JAYY Administration Famotidine 20 mg 10/10/21 09:00
[2021-10-12] MEDS: MAGNESIUM HYDROXIDE SUSP 30 ML UDC PO (18:41)
[2021-10-12] MEDS: DOCUSATE SODIUM 100 MG CAPSULE PO (23:28)
[2021-10-13] VITALS: PULSE 67
[2021-10-13 04:00] VITALS: PULSE 67
[2021-10-13 06:00] VITALS: BP 135/69; PULSE 66; RESP 18; TEMP 36.6; O2SAT 97
[2021-10-13] MEDS: cloNIDine HCL 0.1 MG TABLET PO (08:05)
[2021-10-13] MEDS: DOCUSATE SODIUM 100 MG CAPSULE PO (08:05)
[2021-10-13] MEDS: ASPIRIN 81 MG CHEWABLE TABLET PO (08:05)
[2021-10-13] MEDS: lisinopriL 20 MG TABLET 40 MG PO (08:06)
[2021-10-13] MEDS: ATORVASTATIN 40 MG TABLET 80 MG PO (08:06)
[2021-10-13] MEDS: ARIPiprazole 2 MG TABLET PO (08:06)
[2021-10-13] MEDS: amLODIPine BESYLATE 5 MG TABLET 10 MG PO (08:06)
[2021-10-13] MEDS: LACTULOSE 20 GM/30 ML UDC PO (08:08)
[2021-10-13 10:43] LABS: EDCOVIDSCREEN Negative (Negative)
--- NOTE | 2021-10-13 11:54 | PM.DS ---
DS: Admitting Diagnosis Discharge Date 10/13/2021 Admitting Diagnosis Acute cholecystitis. DS: Discharge Diagnosis Discharge Diagnosis (1) Cholelithiasis and cholecystitis without obstruction: Code(s): K80.10 - Calculus of gallbladder with chronic cholecystitis without obstruction Status: Acute Assessment and Plan: Asymptomatic acute cholecystitis, Currently on IV antibiotic with Invanz. she is also being evaluated by surgery. She has evidence of cholelithiasis with gallbladder wall thickening. WBC slightly elevated. LFTs and lipase normal. She is denying any abdominal pain and abdomen is nontender on exam. HIDA scan confirms cholecystitis. Resume low fat diet. Continue IV Ancef. (2) Weakness of both lower extremities: Code(s): R29.898 - Other symptoms and signs involving the musculoskeletal system Status: Acute Assessment and Plan: Unclear if this is acute or chronic following her stroke. CT head showed no acute abnormalities. MRI spine did not reveal any acute abnormalities. Neurology consulted. (3) Pancreatic mass: Code(s): K86.89 - Other specified diseases of pancreas Status: Acute Assessment and Plan: Incidentally noted on CT scan. GI was consultedNot her acute issue, but need further investigation that could be done as an outpatient. (4) Adrenal mass: Code(s): E27.8 - Other specified disorders of adrenal gland Status: Acute Assessment and Plan: Incidentally noted on CT scan. (5) Abnormal CT of the abdomen: Code(s): R93.5 - Abnormal findings on diagnostic imaging of other abdominal regions, including retroperitoneum Status: Acute Assessment and Plan: Soft tissue prominence of the proximal sigmoid colon. Patient denies history of a colonoscopy, although her history is limited by her dysarthria. 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 (7) Stroke due to embolism: Code(s): I63.9 - Cerebral infarction, unspecified Status: Acute Assessment and Plan: July 2020 with residual right-sided weakness, dysphagia, and slurred speech. (8) Hypertension: Code(s): I10 - Essential (primary) hypertension Status: Acute Assessment and Plan: Hypertension is moderately controlled with a blood pressure of 139/80 6-153/94 today. Continue home BP medications. Blood pressure Was elevated on admission with measurement in the 156/74-169/78 range. Continue amlodipine 10 mg p.o. daily. Continue clonidine 0.1 mg p.o. t.i.d. Continue lisinopril 40 mg p.o. daily. 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 DS: Summary Hospital Course Reason for hospitalization: Right upper quadrant pain. Bilateral lower extremity weakness. Hospital Course: Please refer to admission H& P. Briefly,this is a 60-year-old female with a history of hypertension, hyperlipidemia, and stroke with residual right-sided weakness, slurred speech, and dysphagia who resides at a [facility] facility. She is able to answer questions, but at times is difficult to understand due to her slurred speech. She is confused when questioning her history, although is oriented to place and person but not time. She is poor historian, therefore her history is also obtained by review of her EMR. Per the ER documentation, she presented with RUQ abdominal pain x 1 day and new lower extremity weakness. Labs showed a white blood cell count of 11,800, normal LFTs, normal lipase, and lactic acid 2.9. CT scan of the abdomen and pelvis showed gallbladder wall thickening, cholelithiasis, 3.3 x 3.7 cm circum
== END 2021-10-13 12:55 | DRG 445 ==
LOC: ANHED 08:15 → ANH3MED 11:56
PROVIDERS: Emergency Medicine; Nurse Practitioner Family; Admitting Provider Internal Medicine; Emergency Provider Emergency Medicine; PCP Internal Medicine; Visit Provider Internal Medicine
DX: K80.00 Calculus of gallbladder with acute cholecystitis without obstruction (principal); I69.351 Hemiplegia and hemiparesis following cerebral infarction affecting right dominant side; K86.89 Other specified diseases of pancreas; E66.9 Obesity, unspecified; Z68.36 Body mass index [BMI] 36.0-36.9, adult; Z20.822 Contact with and (suspected) exposure to COVID-19; I10 Essential (primary) hypertension; E78.5 Hyperlipidemia, unspecified; M19.90 Unspecified osteoarthritis, unspecified site; E27.8 Other specified disorders of adrenal gland; F17.210 Nicotine dependence, cigarettes, uncomplicated; I69.391 Dysphagia following cerebral infarction; R13.10 Dysphagia, unspecified; I69.320 Aphasia following cerebral infarction; I69.328 Other speech and language deficits following cerebral infarction; Z79.02 Long term (current) use of antithrombotics/antiplatelets; Z79.82 Long term (current) use of aspirin
CPT/HCPCS: 36415; 70450; 72158; 74177; 78226; 80053; 83605; 83690; 85025; 85027; 85610; 85730; 87426; 96365; 96366; 96375; 96376; 97110; 97162; 97166; 97530; 97535; 99285; A9270; A9537; A9577; C9803; G0378; J0690; J1170; J2405; J7120; Q9967

== ENCOUNTER 2021-10-16 19:26 | Inpatient (IN) | payer MEDICARE, SELFPAY ==
--- NOTE | ~2021-10-16 | XR_ITS ---
XR chest 2V DATE: 10/18/2021 17:11 INDICATION: Cough. Dysphagia. CVA. TECHNIQUE: AP and lateral chest COMPARISON: 10/16/2021 AP chest FINDINGS: Heart size appears borderline but is not optimally evaluated on AP projection because of ma gnification. Aortic arch calcification and mild aortic unfolding. No hilar or mediastinal enlargement . No pulmonary consolidation, pleural effusion, pulmonary vascular congestion or pneumothorax is eviden t. IMPRESSION: Borderline heart size, aortic atherosclerosis No active pulmonary disease Reviewed, dictated and finalized at location J. TICING MD ANESTHESIOLOGIST
--- NOTE | ~2021-10-16 | XR_ITS ---
EXAMINATION: XR chest 1V INDICATION: Altered mental status TECHNIQUE: AP view of the chest is obtained. COMPARISON: None available FINDINGS: There are minimal bibasilar airspace opacities. There is no pleural effusion or pneumothora x. The cardiomediastinal silhouette is normal for technique. IMPRESSION: 1. Minimal bibasilar airspace opacities, consistent with atelectasis versus pneumonia. Reviewed, dictated and finalized at location F. TY SALES ADVISOR IMPRESSION: 1. Minimal bibasilar airspace opacities, consistent with atelectasis versus pne umonia.
--- NOTE | ~2021-10-16 | XR_ITS ---
EXAMINATION: XR barium swallow modified EXAM DATE: 10/19/2021 11:35 INDICATION: Delayed cough and throat clear. TECHNIQUE: Modified barium esophagram was performed by speech pathologist with radiologist Dr. Alvaro Slaughter present to administered fluoroscopy. Speech pathologist administered barium in varying consis tencies as per speech pathologist documentation. This was recorded on tape. There was total fluorosc opic time of 3 minutes The DAP for this procedure was 2.7 Gycm2. A total of 3 images sent to PACS from the exam. FINDINGS: Oral stage: Delayed trigger. Pharyngeal phase: Reduced laryngeal elevation, abduction, tongue base retraction. Trace residual. Laryngeal penetration: Deep, thin liquids. Aspiration: Demonstrated. Laryngeal sensitivity: Absent. IMPRESSION: Aspiration demonstrated; Please refer to speech pathologist findings and specific feedin g recommendations. Reviewed, dictated and finalized at location A. IC INFORMATION COORDINATOR IMPRESSION: Aspiration demonstrated; Please refer to speech pathologist findin gs and specific feeding recommendations.
--- NOTE | ~2021-10-16 | CT_ITS ---
EXAMINATION: CT brain wo con INDICATION: Altered mental status COMPARISON: 10/09/2021 TECHNIQUE: Standard unenhanced head CT. The dose-length product (DLP) was 605.33 mGy-cm. The mA was a djusted according to patient size. Iterative reconstruction technique was employed. FINDINGS: There is no acute intraparenchymal hemorrhage. No evidence of mass lesion. No evidence of a cute infarction. There are areas of prior infarction in the bilateral thalami, brainstem, and basal g anglia. There is mild periventricular and subcortical hypodensity probably related to small vessel is chemic disease. There is mild prominence of the sulci and ventricles related to cerebral atrophy. Int racranial calcified cerebral atherosclerosis is noted. There are no extra-axial collections. There is no mass effect or midline shift. The orbits and soft tissues are unremarkable. The visualized sinuse s and mastoid air cells are well aerated. IMPRESSION: 1. No acute intracranial abnormality. 2. Age related findings. Reviewed, dictated and finalized at location F. DRIVER
--- NOTE | ~2021-10-16 | US_ITS ---
EXAMINATION: US renal BI DATE: 10/17/2021 07:29 INDICATION: Acute renal insufficiency TECHNIQUE: Multiple ultrasound grayscale images of the kidneys were obtained. COMPARISON: None. FINDINGS: The right kidney measures 10.2 x 4.3 x 4.6 cm. The left kidney measures 9.9 x 5.6 x 6.0 cm. The kidne ys demonstrate normal echogenicity. There is no hydronephrosis in either kidney. No stones identifie d. The bladder is nonvisualized, likely decompressed.. IMPRESSION: 1. Normal kidneys without hydronephrosis. Reviewed, dictated and finalized at location A. LONG TERM CARE
[2021-10-16 19:30] VITALS: BP 110/68; PULSE 58; RESP 16; TEMP 37; O2SAT 99
--- NOTE | 2021-10-16 19:39 | ECG_ITS ---
Measurements Intervals Golden Rate: 80 P: 52 KS: 180 QRS: -1 QRSD: 78 T: -81 QT: 393 QTc: 456 Interpretive Statements SINUS RHYTHM LEFT VENTRICULAR HYPERTROPHY WITH ST-T CHANGE ST-T WAVE ABNORMALITY IN ANTEROLATERAL LEADS- CONSIDER ISCHEMIA BASELINE ARTIFACT- I, II, III, AVR, AVL, AVF, V1-V2, V4-V6 ABNORMAL ECG Electronically Signed On 10-17-2021 6:33:07 METER REPAIR SHOP SUPERVISOR by Jordan Jeff D.O.
--- NOTE | 2021-10-16 19:45 | PC.NURSE ---
Pt to CT at this time.
[2021-10-16 20:30] VITALS: BP 99/66; PULSE 66; RESP 19; O2SAT 100
--- NOTE | 2021-10-16 20:38 | ED.AMS ---
HPI - Altered Mental Status General Chief Complaint: Altered Mental Status Stated Complaint: Altered Mental Status Time Seen by Provider: 10/16/21 19:28 Source: patient and EMS Mode of arrival: EMS Limitations: physical limitation (patient with dysarthria from previous stroke) History of Present Illness HPI narrative: This is a 60 year old female with history of hypertension, CVA, dysphagia and dysarthria who presents via EMS for evaluation of unresponsiveness. EMS reported that patient has been sitting in chair for 2 hours only responsive to verbal stimuli. EMS reports patient's BP was systolic 80, so she was placed in [place]. On arrival to ER, patient is alert and oriented. EMS reports patient is now at her baseline. Patient has history of CVA which causes dysarthria and weakness at baseline Patient was discharged from hospital 3 days ago. She denies chest pain, sob, abdominal pain, nausea or vomiting. Related Data Home Medications Medication Instructions Recorded Confirmed atorvastatin 80 mg PO DAILY 05/25/21 10/09/21 clonidine HCl 0.1 mg PO TID 05/25/21 10/09/21 famotidine 20 mg PO BID 05/25/21 10/09/21 gabapentin 300 mg PO BID 05/25/21 10/09/21 hydroxyzine HCl 10 mg PO BID 05/25/21 10/09/21 lisinopril 40 mg PO DAILY 05/25/21 10/09/21 amlodipine [Norvasc] 10 mg PO DAILY 10/09/21 10/09/21 aripiprazole [Abilify] 2 mg PO DAILY 10/09/21 10/09/21 bisacodyl [Dulcolax (bisacodyl)] 10 mg RECTAL DAILY PRN 10/09/21 10/09/21 miconazole-tolnaftate 2 % TOPICAL BID 10/09/21 10/09/21 tramadol 50 mg PO TID 10/09/21 10/09/21 Allergies Allergy/AdvReac Type Severity Reaction Status Date / Time Penicillins Allergy Intermediate Hives Verified 10/09/21 04:32 Review of Systems Review of Systems: ROS unobtainable: Yes unobtainable due to medical condition PMFSH Past Medical History Medical History (Updated 10/17/21 @ 01:43 by Sue Grace MD) Aphasia History of CVA (cerebrovascular accident) History of gastrostomy tube placement S/p stroke had G-tube which has since been removed. History of hyperlipidemia History of hypertension Surgical History Surgical History History of tubal ligation Family History Family History Father of unknown cause Mother Heart attack Hypertension Social History Social History Smoking packs per day: 1 Smoking cigarettes per day: 20.0 Years smoked: 30 Smoking pack-years: 30.00 Smoking status: Current some day smoker Tobacco type: cigarettes Second hand tobacco smoke exposure: Yes Alcohol intake: former Drinks per week: 0 Substance use: current Other substance usage details: smoke cigarettes sometimes Spiritual care concerns: No Exam Const: General: no acute distress and alert HENMT: Head: normocephalic and atraumatic Ears: TM's normal bilaterally Face and sinus: face symmetric Mouth: Yes Normal oral and palatal mucosa present and Yes oropharynx normal Eyes: EOM: EOMs intact bilaterally Resp: Effort & Inspection: normal respiratory effort and no retractions Auscultation: clear to auscultation bilaterally Cardio: Rate: regular rate Rhythm: regular rhythm Heart sounds: no murmurs GI: GI Palp: Yes Soft to palpation, No Tenderness to palpation present (GI) and No Guarding due to palpation present (GI) Auscultation: normal bowel sounds Back/Spine/Pelvis: Back: no CVA tenderness Skin: Other: left arm at AC fossa there are healing wounds, no purulent drainage of erythema Neuro: Speech: Abnormal speech present slurred Extrem: Other: bilateral upper extremities spastic , contracted Psych: Attitude: cooperative Course Reevaluation(s) Reevaluation #1: Patient was just release from hospital 3 days ago. At that time her creatinine was 1.8 and it was normal on her admission on
[2021-10-16] MEDS: SODIUM CHLORIDE 0.9% IV 1,000 ML 999 ML IV CONT (21:27)
[2021-10-16 21:46] LABS: INR 1.1
[2021-10-16 21:47] LABS: Partial Thromboplastin Time 31.9 SECONDS (22.3-36.8)
[2021-10-16 21:49] LABS: Basophils Percent Auto 0.3 % (0.2-1.2); Eosinophils Percent Auto 0.2 % (0-4.4); Hemoglobin 11.3 g/dL (12.0-15.0); Immature Granulocyte Absolute 0.06 K/mm3 (0.00-0.031); Immature Granulocyte Percent A 0.5 % (0-0.5); Lymphocytes Absolute Auto 1.79 K/mm3 (0.9-3.2); Lymphocytes Percent Auto 15.6 % (18.3-44.2); Mean Corpuscular HGB Conc 31.4 g/dl (32-36); Mean Corpuscular Volume 92.3 fl (80-100); Mean Platelet Volume 9.6 fl (7.4-10.4); Monocytes Absolute Auto 0.5 K/mm3 (0.1-0.6); Neutrophils Absolute Auto 9.1 K/mm3 (1.3-6.7); Neutrophils Percent Auto 79.4 % (45.5-73.1); Platelet Count Result 420 k/mm3 (150-375); Red Cell Distribution Width 14.2 % (11.5-14.5); White Blood Count 11.5 K/mm3 (4.5-10.0)
[2021-10-16 21:51] LABS: Ammonia < 9 umol/L (9-30)
[2021-10-16 21:52] LABS: Lactic Acid Reflex 2.8 mmol/L (0.7-2.1)
[2021-10-16 21:55] LABS: Alanine Aminotransferase 25 U/L (4-35); Albumin Level 4.7 g/dL (3.5-5.1); Alkaline Phosphatase 108 U/L (38-126); Anion Gap 15 mmol/L (8-16); Aspartate Amino Transferase 33 U/L (14-36); Bilirubin,Total 0.3 mg/dL (0.2-1.3); Blood Urea Nitrogen 33 mg/dL (7-17); Calcium 9.7 mg/dL (8.4-10.2); Carbon Dioxide 25 mmol/L (22-30); Chloride 102 mmol/L (98-107); Estimated Glomerular Filt Rate 23; Glucose 128 mg/dL (65-110); Potassium 3.9 mmol/L (3.4-5.0); Sodium 142 mmol/L (137-145)
[2021-10-16 21:56] LABS: Lipase 81 U/L (23-300)
[2021-10-16 22:06] LABS: Troponin I < 0.012 ng/mL (0.000-0.034)
[2021-10-16 22:30] VITALS: BP 100/64; PULSE 67; RESP 15; O2SAT 100
[2021-10-16 23:24] LABS: Add Urine Microscopic? YES; Appearance Urine Clear (Clear); Bacteria Urine Trace /hpf; Bilirubin Urine Negative (Negative); Blood Urine Negative (Negative); Color Urine Yellow (Yellow); Glucose Urine UA Negative (Negative); Ketones Urine Negative (Negative); Leukocyte Esterase Ur Negative LEU/UL (Negative); Mucus Urine Rare /lpf; Nitrate Urine Negative (Negative); Protein Urine 1+ mg/dL (Negative); Specific Grav Ur 1.025 (1.001-1.035); Squamous Epithelial Cell Urine Rare /hpf (Few); Urobilinogen Urine Negative mg/dL (<2.0)
[2021-10-16 23:30] VITALS: BP 104/68; PULSE 60; RESP 17; O2SAT 99
[2021-10-17] VITALS (10 sets, daily range): BP systolic 118–142; BP diastolic 60–70; PULSE 66–79; RESP 18–20; TEMP 36.2–36.7; O2SAT 96–100; BMI 34.4
[2021-10-17 00:33] LABS: Reflex Lactic Acid Yes or No Add Lactic
--- NOTE | 2021-10-17 04:57 | ADMGEN ---
This patient, Nicole Raya, was admitted to [facility] Room 316-01 at 0210. Patient/family oriented to hospital policies and general routines including ID bracelet, bed and alarms, visiting hours, pain management, procedures, bathroom and other care routines, personal items, smoking policy, room service/diet, and visiting hours. Information on how to activate the Rapid Response Team has been discussed. Patient/Family are encouraged to report perceived risks to care and to ask questions if they do not understand what they are told or what they should do.
--- NOTE | 2021-10-17 05:22 | PM.IMHP ---
H&P: HPI History of Present Illness Date/Time: 10/16/21 22:45 cc: Altered mental status. HPI:This is a 60 year old lady with history of hypertension, CVA, dysphagia and dysarthria who presents via EMS for evaluation of unresponsiveness. The patient has pronounced discharge dura and the history is gathered from ED chart. EMS reported that patient has been sitting in chair for 2 hours only responsive to verbal stimuli. EMS reports patient's BP was systolic 80, so she was placed in Trendelenburg. On arrival to ER, patient is alert and oriented. EMS reports patient is now at her baseline. Patient has history of CVA which causes dysarthria and weakness at baseline Patient was discharged from hospital 3 days ago. She denies chest pain, sob, abdominal pain, nausea or vomiting. At presentation and the patient temperature is 98.6?, pulse rate 58, respirations 16, blood pressure 110/68 and pulse ox 99%. Her CBC shows a WBC of 11.5, hemoglobin 11.3, hematocrit 36 and plated 420. Her chemistry shows sodium 142, potassium 3.9, chloride 102, bicarbonate 25, BUN 33, creatinine 2.6 and a blood glucose of 128. LFT shows total bilirubin 0.3, AST 33, ALT 25, alkaline phosphatase 108. Troponin less than 0.02 of. Total protein 9/albumin 4.7. Lactic acid is 2.8. Ammonia less than 9. Lipase 81. Head CT did not show any acute intracranial abnormality. Chest x-ray shows minimal bibasilar airspace opacities, consistent with atelectasis versus pneumonia. EKG shows normal sinus rhythm, ST depression normal axis. Patient was admitted under observation status. Chief Complaint: Altered mental status. Review of Systems Review of Systems: All systems reviewed & are unremarkable except as noted in HPI and below ROS unobtainable: Yes unobtainable due to medical condition and unobtainable due to mental status Neurologic: Reports Abnormal speech present [facility] Past Medical History Medical History Aphasia History of CVA (cerebrovascular accident) History of gastrostomy tube placement S/p stroke had G-tube which has since been removed. History of hyperlipidemia History of hypertension Surgical History Surgical History History of tubal ligation Family History Family History Father of unknown cause Mother Heart attack Hypertension Social History Social History Smoking packs per day: 1 Smoking cigarettes per day: 20.0 Years smoked: 30 Smoking pack-years: 30.00 Smoking status: Current some day smoker Second hand tobacco smoke exposure: Yes Alcohol intake: former Drinks per week: 0 Other substance usage details: smoke cigarettes sometimes Spiritual care concerns: No Meds Home Medications and Allergies Home Medications Medication Instructions Recorded Confirmed Type acetaminophen [Mapap 650 mg PO Q4H PRN #50 tablet 08/08/20 10/17/21 Rx (acetaminophen)] aspirin 81 mg PO DAILY #30 tablet 08/08/20 10/17/21 Rx clopidogrel 75 mg PO DAILY #30 tablet 08/08/20 10/17/21 Rx atorvastatin 80 mg PO DAILY 05/25/21 10/17/21 History clonidine HCl 0.1 mg PO TID 05/25/21 10/17/21 History famotidine 20 mg PO BID 05/25/21 10/17/21 History gabapentin 300 mg PO BID 05/25/21 10/17/21 History hydroxyzine HCl 10 mg PO BID 05/25/21 10/17/21 History lisinopril 40 mg PO DAILY 05/25/21 10/17/21 History amlodipine [Norvasc] 10 mg PO DAILY 10/09/21 10/17/21 History aripiprazole [Abilify] 2 mg PO DAILY 10/09/21 10/17/21 History bisacodyl [Dulcolax (bisacodyl)] 10 mg RECTAL PRN PRN 10/09/21 10/17/21 History miconazole-tolnaftate 2 % TOPICAL BID 10/09/21 10/17/21 History tramadol 50 mg PO TID 10/09/21 10/17/21 History cephalexin 500 mg PO Q8H #15 cap 10/13/21 10/17/21 Rx docusate sodium 100 mg PO Q12HR #60 cap 10/13/21 10/17/21 Rx lactulose 20 g PO Q
[2021-10-17 09:36] LABS: Lactic Acid 2.8 mmol/L (0.7-2.1)
--- NOTE | 2021-10-17 12:35 | PM.IMPN ---
Progress Note: A&P Assessment and Plan (1) Unresponsiveness: Code(s): R41.89 - Other symptoms and signs involving cognitive functions and awareness Status: Acute Assessment and Plan: The actual etiology is unclear. Patient was brought in for altered mental status. CT scan dating retain any acute lesions. On arrival her blood pressure was on the low side. She received IV resuscitation with IV fluids. Her blood pressure quickly improved in her mentation is better. At the time of my evaluation, the patient's dysarthria was worse. However patient could have been sleepy at the time of tonight. Maintain fall precaution. Continue close monitoring. (2) Acute kidney injury: Code(s): N17.9 - Acute kidney failure, unspecified Status: Acute Assessment and Plan: Patient was recently discharged from the hospital 3 days ago. At the time, her creatinine was stable in the 0.7- 0.9 range. However on the day of discharge creatinine was double at 1.8. On admission today the creatinine is high at 2.6. This is likely prerenal versus ischemic ATN in the setting of hypotension. As baseline the patient hypertension was moderately control with systolic BP is in the 140-150 range. Obtain renal ultrasound. Obtain urine electrolytes. Please renally dose medication. Avoid contrast exposure and other nephrotoxic agents. (3) Hypertension: Code(s): I10 - Essential (primary) hypertension Status: Acute Assessment and Plan: Hold BP medication in the setting of acute kidney injury and hypotension. BP previously moderately controlled with SBP in the 140-150 range. May consider resuming BP medication when blood pressure is over 140/90. Resume amlodipine 5 mg p.o. daily when BP 140/90. Hold clonidine 0.1 mg p.o. t.i.d. Hold lisinopril 40 mg p.o. daily in the setting of LASHAWN. (4) Abnormal CT of the abdomen: Code(s): R93.5 - Abnormal findings on diagnostic imaging of other abdominal regions, including retroperitoneum Status: Acute Assessment and Plan: Soft tissue prominence of the proximal sigmoid colon. Patient denies history of a colonoscopy, although her history is limited by her dysarthria. Per GI, we can arrange EUS of pancreas as outpatient (5) Adrenal mass: Code(s): E27.8 - Other specified disorders of adrenal gland Status: Acute Assessment and Plan: Incidentally noted on CT scan. (6) Pancreatic mass: Code(s): K86.89 - Other specified diseases of pancreas Status: Acute Assessment and Plan: refer for EUS as an outpatient. 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 Subjective Date/time seen: 10/17/21 12:35 Interval history: I agree with current A/P. Will continue to monitor Objective Data Vital Signs Vital Signs: Vital Signs - 24 hr 10/16/21 19:30 10/16/21 20:30 10/16/21 22:30 Temperature 37.0 C Pulse Rate 58 L 66 67 Respiratory Rate 16 19 15 Blood Pressure 110/68 99/66 L 100/64 Pulse Oximetry 99 100 100 10/16/21 23:30 10/17/21 02:10 10/17/21 02:22 Temperature 36.2 C L Pulse Rate 60 66 68 Respiratory Rate 17 20 Blood Pressure 104/68 121/64 Pulse Oximetry 99 98 96 10/17/21 04:00 10/17/21 06:00 Temperature 36.6 C Pulse Rate 73 66 Respiratory Rate 20 Blood Pressure 118/60 Pulse Oximetry 97 Intake/Output Intake/Output: Intake & Output 10/14/21 10/15/21 10/16/21 10/17/21 23:59 23:59 23:59 23:59 Intake Total 1000 570 Balance 1000 570 Meds/Results Medications: Active Medications Generic Name Dose Route Start Last Admin Trade Name Freq PRN Reason Stop Dose Admin Sodium Chlor
--- NOTE | 2021-10-17 16:35 | PM.CNNEP ---
Assessment and Plan Assessment and plan (1) Acute kidney injury: Code(s): N17.9 - Acute kidney failure, unspecified Status: Acute Assessment and Plan: baseline creatinine normal possible volume depletion in association with hypotension follow trend of UOP trial of IVFs if not improvement in renal function, may need further testing... (2) Altered mental status: Code(s): R41.82 - Altered mental status, unspecified Status: Acute Assessment and Plan: resolved back to baseline follow mentation (3) Hypertension: Code(s): I10 - Essential (primary) hypertension Status: Acute Assessment and Plan: previously hypotensive but also back to baseline follow trend of hemodynamics (4) CVA (cerebral vascular accident): Code(s): I63.9 - Cerebral infarction, unspecified Status: Chronic Assessment and Plan: chronic issue supportive therapy (5) Pancreatic mass: Code(s): K86.89 - Other specified diseases of pancreas Status: Acute Assessment and Plan: as noted by admission imaging will likely need outpatient evaluation Will continue to follow. History of Present Illness Reason for Consult Consult date: 10/17/21 Reason for consult: acute renal failure Chief Complaint Chief complaint: Acute Kidney Injury History of Present Illness Narrative: The patient is a 60-year-old female with a past medical history as outlined below who presented to [facility] Emergency room via EMS for altered mental status / unresponsiveness. Most of the history obtained is from review of the electronic medical record as the patient has a significant expressive aphasia that somewhat limits the ability to get a full and complete history from her. Apparently, EMS reported that the patient was sitting in her chair for approximately 2 hr with minimal responsiveness. By the time of their arrival, she was reportedly hypotensive with a blood pressure in the 80 systolic. Prior to EMS arrival, she had no reported issues or problems with regard to chest pain, shortness of breath, abdominal pain, nausea, or vomiting. Workup and evaluation in the emergency room demonstrated the patient to be hemodynamically stable and interestingly, by the time of her arrival to the emergency room, her mental status was back to baseline. Routine blood test demonstrated a mildly elevated white blood cell count and a chemistry it was significant for an elevated BUN and creatinine for above her baseline. CT scan of the head did not show any it to cranial abnormality and her chest x-ray demonstrated possible atelectasis versus pneumonia. Given the constellation of symptoms as mentioned above as well as her acute kidney injury/ acute renal failure by admission labs, she was admitted to the hospital for further evaluation and therapy. Renal consultation was requested due to her acute kidney injury/acute renal failure. For review of her labs, the patient has normal kidney function at baseline. There is no reported issues related to poor oral intake but I am unclear if that is truly the case as the patient can not confirm or deny this to me at this time. In fact, from what little I can gather, a she seems indicate that she drinks plenty of fluid/ water in general. No other systemic symptoms to report as mentioned above either. Currently, at the time of my visit, she appears to be in no acute distress. Review of Systems Review of Systems: As per HPI - difficult to assess from patient. [facility] Past Medical History Medical History Aphasia History of CVA (cerebrovascular accident) History of gastrostomy tube placement S/p stroke had G-tube which has since been removed. History of hyperlipidemia History of hypertension Surgical History Surgical History Hist
[2021-10-17] MEDS: SODIUM CHLORIDE 0.9% IV 1,000 ML 125 ML IV CONT (19:35)
[2021-10-18] VITALS (9 sets, daily range): BP systolic 159–177; BP diastolic 69–84; PULSE 66–80; RESP 18–20; TEMP 36.8–37.2; O2SAT 98–99; BMI 10.0
[2021-10-18 04:06] LABS: Creatinine Urine 101.8 mg/dL
[2021-10-18 04:19] LABS: Sodium Urine Random 170 meq/L
[2021-10-18] MEDS: SODIUM CHLORIDE 0.9% IV 1,000 ML 125 ML IV CONT ×2 (04:51→18:05)
[2021-10-18 04:55] LABS: Eosinophil Urine None Seen % (None Seen)
[2021-10-18 07:27] LABS: Basophils Percent Auto 0.3 % (0.2-1.2); Eosinophils Percent Auto 0.3 % (0-4.4); Hematocrit 29.3 % (37.0-47.0); Hemoglobin 9.2 g/dL (12.0-15.0); Immature Granulocyte Absolute 0.04 K/mm3 (0.00-0.031); Immature Granulocyte Percent A 0.4 % (0-0.5); Lymphocytes Absolute Auto 2.62 K/mm3 (0.9-3.2); Lymphocytes Percent Auto 24.8 % (18.3-44.2); Mean Corpuscular HGB Conc 31.4 g/dl (32-36); Mean Corpuscular Hemoglobin 28.6 pg (26-34); Mean Platelet Volume 9.5 fl (7.4-10.4); Monocytes Absolute Auto 0.8 K/mm3 (0.1-0.6); Monocytes Percent Auto 7.3 % (2.6-8.5); Neutrophils Absolute Auto 7.1 K/mm3 (1.3-6.7); Neutrophils Percent Auto 66.9 % (45.5-73.1); Platelet Count Result 370 k/mm3 (150-375); Red Blood Count 3.22 M/mm3 (4.2-5.4); Red Cell Distribution Width 13.9 % (11.5-14.5); White Blood Count 10.6 K/mm3 (4.5-10.0)
[2021-10-18 07:48] LABS: Alanine Aminotransferase 15 U/L (4-35); Albumin Level 3.9 g/dL (3.5-5.1); Alkaline Phosphatase 89 U/L (38-126); Anion Gap 9 mmol/L (8-16); Aspartate Amino Transferase 20 U/L (14-36); Bilirubin,Total 0.4 mg/dL (0.2-1.3); Blood Urea Nitrogen 16 mg/dL (7-17); Calcium 8.7 mg/dL (8.4-10.2); Carbon Dioxide 23 mmol/L (22-30); Chloride 108 mmol/L (98-107); Estimated CRCL calculation 76 ml/min; Estimated Glomerular Filt Rate > 60; Glucose 109 mg/dL (65-110); Potassium 3.5 mmol/L (3.4-5.0); Sodium 140 mmol/L (137-145)
--- NOTE | 2021-10-18 15:01 | PCSTNOTE ---
Please refer to the Bedside Swallow Evaluation in the EMR. Please note, silent aspiration cannot be ruled out at bedside.
--- NOTE | 2021-10-18 15:27 | PM.IMPN ---
Progress Note: A&P Assessment and Plan (1) Unresponsiveness: Code(s): R41.89 - Other symptoms and signs involving cognitive functions and awareness Status: Acute Assessment and Plan: The actual etiology is unclear. Patient was brought in for altered mental status. Her unresponsiveness at the [facility] may have been related to lactic acidosis and/or her medications, having too many medications, as well as psych medication side effects. We are currently holding or have reduced dosing on some of those medications. Head CT scan on 10/16 unchanged from 10/09. On arrival her blood pressure was on the low side. She received IV resuscitation with IV fluids. Her blood pressure quickly improved in her mentation is better. PT/OT/ST eval. Maintain fall precaution. Continue close monitoring. (2) Acute kidney injury: Code(s): N17.9 - Acute kidney failure, unspecified Status: Acute Assessment and Plan: Patient was recently discharged from the hospital 3 days ago. At the time, her creatinine was stable in the 0.7- 0.9 range. However on the day of discharge creatinine was double at 1.8. On admission today the creatinine is high at 2.6. This is likely prerenal versus ischemic ATN in the setting of hypotension. Most likely due to Poor PO hydration. Especially since her CVA. As baseline the patient hypertension was moderately control with systolic BP is in the 140-150 range. WNL Renal ultrasound. Urine electrolytes. Renally dose medication or hold if nephrotoxic. Avoid contrast exposure and other nephrotoxic agents. renal fxn labs back to normal today KEEP well HYDRATED. Feed patient. Assist with all meals. Continue ST after discharge. (3) Hypertension: Code(s): I10 - Essential (primary) hypertension Status: Acute Assessment and Plan: Hold BP medication in the setting of acute kidney injury and hypotension. BP previously moderately controlled with SBP in the 140-150 range. Resuming BP medications today as BPs have been >140 this afternoon and evening. no concerns since admission, now D/C'ing Cardiac Telemetry monitoring. Resumed amlodipine 5 mg p.o. daily Resumed clonidine 0.1 mg p.o. t.i.d. to avoid rebound HTN. HOLDING lisinopril 40 mg p.o. daily, HELD in the setting of LASHAWN. Continue VS every 4 hours. (4) Abnormal CT of the abdomen: Code(s): R93.5 - Abnormal findings on diagnostic imaging of other abdominal regions, including retroperitoneum Status: Acute Assessment and Plan: Soft tissue prominence of the proximal sigmoid colon. Patient denies history of a colonoscopy, although her history is limited by her dysarthria. Per GI, MUST arrange EUS of pancreas as outpatient - see Pancreatic Mass plan below. (5) Adrenal mass: Code(s): E27.8 - Other specified disorders of adrenal gland Status: Acute Assessment and Plan: Incidentally noted on CT scan. (6) Pancreatic mass: Code(s): K86.89 - Other specified diseases of pancreas Status: Acute Assessment and Plan: GI wanted to refer her for EUS as an outpatient - but in her condition and due to [facility] stay - it is not likely this will happen. Per Dr. Rubalcava's consult note at last admission, the patient may have a pancreatic lesion in question. He wants to get an endoscopic ultrasound and then if surgical intervention is needed for that perhaps, the gallbladder can be removed at that time as well. At this time, she is not having any abdominal pain or discomfort. She has a strong appetite. Her lipase is WNL, 81 on 10/16/21. Antibiotics were stopped at this admission due to her Acute Renal Failure. Will continue to monitor for any N/V/Pain or developing concerns. (7) Stroke due to embolism: Code(s): I63.9 - Cerebral infarction, unspecified Status: Acute Assessment and Plan: Resume plavix for secondary prevention (8) Obesity (BMI 30-39.9):
[2021-10-18 16:01] LABS: Lactic Acid Reflex 1.7 mmol/L (0.7-2.1)
[2021-10-18 16:04] LABS: Ammonia 13 umol/L (9-30)
[2021-10-18 16:04] LABS: Phosphorus 2.3 mg/dL (2.5-4.5)
--- NOTE | 2021-10-18 16:10 | P.PNNP_ITS ---
Progress Note: A&P Assessment and Plan (1) Acute kidney injury: Code(s): N17.9 - Acute kidney failure, unspecified Status: Acute Assessment and Plan: * resolved * suspect volume depletion in association with hypotension * follow trend of UOP * wean off IVFs and encourage oral intake. (2) Altered mental status: Code(s): R41.82 - Altered mental status, unspecified Status: Acute Assessment and Plan: * resolved * back to baseline * follow mentation (3) Hypertension: Code(s): I10 - Essential (primary) hypertension Status: Acute Assessment and Plan: * previously hypotensive but also back to baseline * follow trend of hemodynamics (4) CVA (cerebral vascular accident): Code(s): I63.9 - Cerebral infarction, unspecified Status: Chronic Assessment and Plan: * chronic issue * supportive therapy (5) Pancreatic mass: Code(s): K86.89 - Other specified diseases of pancreas Status: Acute Assessment and Plan: * as noted by admission imaging * will likely need outpatient evaluation Will continue to follow from a distance. Subjective Date/time seen: 10/18/21 16:10 Appears to be doing reasonably well at this time; renal function appears to have normalized with IVF resuscitation; no apparent distress noted; no issues/events overnight or earlier this AM. Exam Narrative: General: WD/WN AA female in NAD Heart: normal S1 and S2; no rub Lungs: clear to auscultation Abdomen: soft, nontender, nondistended, positive bowel sounds Extremities: no cyanosis or clubbing; no edema Skin: warm and dry Objective Data Vital Signs Vital Signs: Vital Signs Temp Pulse Resp BP Pulse Ox 10/18/21 16:00 77 10/18/21 14:00 37.2 C 80 20 160/84 H 98 10/18/21 12:00 69 10/18/21 08:00 78 10/18/21 04:55 36.8 C 77 20 159/69 H 98 10/18/21 04:00 77 10/18/21 00:00 69 10/17/21 22:00 36.6 C 79 18 136/70 99 10/17/21 20:00 77 18 99 Intake/Output Intake/Output: Intake & Output 10/15/21 10/16/21 10/17/21 10/18/21 23:59 23:59 23:59 23:59 Intake Total 1000 1330 2610 Output Total 150 Balance 1000 1330 2460 Meds/Results Medications: Active Medications Generic Name Dose Route Start Last Admin Trade Name Freq PRN Reason Stop Dose Admin Acetaminophen 1,000 mg 10/18/21 15:26 10/18/21 18:11 Acetaminophen 500 Mg Tablet PO 1,000 mg Q6H PRN Administration Pain 1-3 or Fever Amlodipine Besylate 10 mg 10/19/21 09:00 Amlodipine Besylate 5 Mg Tablet PO DAILY [facility] Aripiprazole 2 mg 10/19/21 09:00 Aripiprazole 2 Mg Tablet PO DAILY [facility] Aspirin 81 mg 10/19/21 09:00 Aspirin 81 Mg Chewable Tablet PO DAILY [facility] Atorvastatin Calcium 80 mg 10/19/21 09:00 Atorvastatin 40 Mg Tablet PO DAILY [facility] Bisacodyl 10 mg 10/18/21 15:13 Bisacodyl 10 Mg Suppository RECTAL PRN PRN Constipation Clonidine HCl 0.1 mg 10/18/21 17:00 10/18/21 18:03 Clonidine Hcl 0.1 Mg Tablet PO 0.1 mg
--- NOTE | 2021-10-18 16:10 | PM.PNNEP ---
Progress Note: A&P Assessment and Plan (1) Acute kidney injury: Code(s): N17.9 - Acute kidney failure, unspecified Status: Acute Assessment and Plan: resolved suspect volume depletion in association with hypotension follow trend of UOP wean off IVFs and encourage oral intake. (2) Altered mental status: Code(s): R41.82 - Altered mental status, unspecified Status: Acute Assessment and Plan: resolved back to baseline follow mentation (3) Hypertension: Code(s): I10 - Essential (primary) hypertension Status: Acute Assessment and Plan: previously hypotensive but also back to baseline follow trend of hemodynamics (4) CVA (cerebral vascular accident): Code(s): I63.9 - Cerebral infarction, unspecified Status: Chronic Assessment and Plan: chronic issue supportive therapy (5) Pancreatic mass: Code(s): K86.89 - Other specified diseases of pancreas Status: Acute Assessment and Plan: as noted by admission imaging will likely need outpatient evaluation Will continue to follow from a distance. Subjective Date/time seen: 10/18/21 16:10 Appears to be doing reasonably well at this time; renal function appears to have normalized with IVF resuscitation; no apparent distress noted; no issues/events overnight or earlier this AM. Exam Narrative: General: WD/WN AA female in NAD Heart: normal S1 and S2; no rub Lungs: clear to auscultation Abdomen: soft, nontender, nondistended, positive bowel sounds Extremities: no cyanosis or clubbing; no edema Skin: warm and dry Objective Data Vital Signs Vital Signs: Vital Signs Temp Pulse Resp BP Pulse Ox 10/18/21 16:00 77 10/18/21 14:00 37.2 C 80 20 160/84 H 98 10/18/21 12:00 69 10/18/21 08:00 78 10/18/21 04:55 36.8 C 77 20 159/69 H 98 10/18/21 04:00 77 10/18/21 00:00 69 10/17/21 22:00 36.6 C 79 18 136/70 99 10/17/21 20:00 77 18 99 Intake/Output Intake/Output: Intake & Output 10/15/21 10/16/21 10/17/21 10/18/21 23:59 23:59 23:59 23:59 Intake Total 1000 1330 2610 Output Total 150 Balance 1000 1330 2460 Meds/Results Medications: Active Medications Generic Name Dose Route Start Last Admin Trade Name Freq PRN Reason Stop Dose Admin Acetaminophen 1,000 mg 10/18/21 15:26 10/18/21 18:11 Acetaminophen 500 Mg Tablet PO 1,000 mg Q6H PRN Administration Pain 1-3 or Fever Amlodipine Besylate 10 mg 10/19/21 09:00 Amlodipine Besylate 5 Mg Tablet PO DAILY [facility] Aripiprazole 2 mg 10/19/21 09:00 Aripiprazole 2 Mg Tablet PO DAILY [facility] Aspirin 81 mg 10/19/21 09:00 Aspirin 81 Mg Chewable Tablet PO DAILY [facility] Atorvastatin Calcium 80 mg 10/19/21 09:00 Atorvastatin 40 Mg Tablet PO DAILY [facility] Bisacodyl 10 mg 10/18/21 15:13 Bisacodyl 10 Mg Suppository RECTAL PRN PRN Constipation Clonidine HCl 0.1 mg 10/18/21 17:00 10/18/21 18:03 Clonidine Hcl 0.1 Mg Tablet PO 0.1 mg TID [facility] Administration Clopidogrel Bisulfate 75 mg 10/19/21 09:00 Clopidogrel Bisulfate 75 Mg Tablet PO DAILY [facility] Docusate Sodium 100 mg 10/18/21 21:00 Docusate Sodium 100 Mg Capsule PO Q12HR [facility] Famotidine 20 mg 10/18/21 17:00 10/18/21 18:07 Famotidine 20 Mg Tablet PO Not Given BID [facility] Sodium Chloride 1,000 mls @ 125 mls/hr 10/17/21 00:20 10/18/21 18:05 Normal Saline Iv IV CONT 125 mls/hr .Q8H [facility] Administration Lactulose 20 gm 10/19/21 09:00 Lactulose 20 Gm/30 Ml Udc PO QAM [facility] Miconazole Nitrate 1 applic 10/18/21 17:00 10/18/21 18:03 Miconazole Nitrate 2% Cream 30 Gm Tube TOPICAL 1 applic BID [facility] Administration Ondansetron HCl 4 mg 10/17/21 00:20 Ondansetron Inj 4 Mg/2 Ml Vial IV PUSH Q4H PRN Nausea Potassium Phos/Sodium Phos 1 packet 10/19/21 09:00 Hiral
[2021-10-18 16:14] LABS: NT Pro B Type Natriuretic Pept 181 pg/mL (5-100)
[2021-10-18] MEDS: cloNIDine HCL 0.1 MG TABLET PO (18:03)
[2021-10-18] MEDS: MICONAZOLE NITRATE 2% CREAM 30 GM TUBE 1 APPLIC TOPICAL (18:03)
[2021-10-18] MEDS: ACETAMINOPHEN 500 MG TABLET 1000 MG PO (18:11)
[2021-10-18] MEDS: DOCUSATE SODIUM 100 MG CAPSULE PO (21:08)
[2021-10-18] MEDS: traMADol HCL (*CRX) 50 MG TABLET PO (22:33)
[2021-10-19] VITALS: BP 177/71; PULSE 66; RESP 18; TEMP 36.8; O2SAT 99
[2021-10-19] MEDS: SODIUM CHLORIDE 0.9% IV 1,000 ML 125 ML IV CONT ×2 (01:26→10:00)
[2021-10-19 04:00] VITALS: BP 183/95; PULSE 74; RESP 18; TEMP 36.5; O2SAT 99
[2021-10-19 08:00] VITALS: BP 162/75; PULSE 77; RESP 14; TEMP 36.7; O2SAT 99
[2021-10-19 08:13] LABS: Hematocrit 31.7 % (37.0-47.0); Hemoglobin 10.2 g/dL (12.0-15.0); Mean Corpuscular HGB Conc 32.2 g/dl (32-36); Mean Corpuscular Hemoglobin 28.7 pg (26-34); Mean Platelet Volume 9.1 fl (7.4-10.4); Platelet Count Result 347 k/mm3 (150-375); Red Blood Count 3.56 M/mm3 (4.2-5.4); Red Cell Distribution Width 13.6 % (11.5-14.5); White Blood Count 8.2 K/mm3 (4.5-10.0)
[2021-10-19 08:30] LABS: NT Pro B Type Natriuretic Pept 242 pg/mL (5-100)
[2021-10-19 08:31] LABS: Alanine Aminotransferase 15 U/L (4-35); Albumin Level 3.9 g/dL (3.5-5.1); Alkaline Phosphatase 93 U/L (38-126); Anion Gap 9 mmol/L (8-16); Aspartate Amino Transferase 22 U/L (14-36); Bilirubin,Total 0.4 mg/dL (0.2-1.3); Blood Urea Nitrogen 7 mg/dL (7-17); Calcium 8.9 mg/dL (8.4-10.2); Carbon Dioxide 26 mmol/L (22-30); Chloride 103 mmol/L (98-107); Estimated CRCL calculation 86 ml/min; Estimated Glomerular Filt Rate > 60; Glucose 102 mg/dL (65-110); Potassium 3.2 mmol/L (3.4-5.0); Sodium 138 mmol/L (137-145)
[2021-10-19] MEDS: ATORVASTATIN 40 MG TABLET 80 MG PO (08:47)
[2021-10-19] MEDS: ARIPiprazole 2 MG TABLET PO (08:48)
[2021-10-19] MEDS: FAMOTIDINE 20 MG TABLET PO ×2 (08:48→17:24)
[2021-10-19] MEDS: ASPIRIN 81 MG CHEWABLE TABLET PO (08:48)
[2021-10-19] MEDS: cloNIDine HCL 0.1 MG TABLET PO ×3 (08:48→17:24)
[2021-10-19] MEDS: amLODIPine BESYLATE 5 MG TABLET 10 MG PO (08:48)
[2021-10-19] MEDS: CLOPIDOGREL BISULFATE 75 MG TABLET PO (08:48)
[2021-10-19] MEDS: POTASSIUM/PHOSPHORUS/SODIUM 1.5 GM PACKET 1 PACKET PO (08:48)
[2021-10-19] MEDS: MICONAZOLE NITRATE 2% CREAM 30 GM TUBE 1 APPLIC TOPICAL ×2 (08:49→17:24)
[2021-10-19] MEDS: LACTULOSE 20 GM/30 ML UDC PO (08:51)
--- NOTE | 2021-10-19 09:59 | PM.IMPN ---
Progress Note: A&P Assessment and Plan (1) Unresponsiveness: Code(s): R41.89 - Other symptoms and signs involving cognitive functions and awareness Status: Acute Assessment and Plan: The actual etiology is unclear. Patient was brought in for altered mental status. Her unresponsiveness at the [facility] may have been related to lactic acidosis and/or her medications, having too many medications, as well as psych medication side effects. We are currently holding or have reduced dosing on some of those medications. Head CT scan on 10/16 unchanged from 10/09. On arrival her blood pressure was on the low side. She received IV resuscitation with IV fluids. Her blood pressure quickly improved in her mentation is better. PT/OT/ST eval. Maintain fall precaution. Continue close monitoring. RESOLVED. (2) Acute kidney injury: Code(s): N17.9 - Acute kidney failure, unspecified Status: Acute Assessment and Plan: Patient was recently discharged from the hospital 3 days ago. At the time, her creatinine was stable in the 0.7- 0.9 range. However on the day of discharge creatinine was double at 1.8. THen this admission creatinine 2.6. IVFS given and now 0.70. This is likely prerenal versus ischemic ATN in the setting of hypotension. Most likely due to Poor PO hydration. Especially since her CVA. As baseline the patient hypertension was moderately control with systolic BP is in the 140-150 range. WNL Renal ultrasound. Urine electrolytes. Renally dose medication or hold if nephrotoxic. Avoid contrast exposure and other nephrotoxic agents.Lisinopril D/C'd. renal fxn labs back to normal today KEEP well HYDRATED. Feed patient. Assist with all meals. Continue ST after discharge. (3) Hypertension: Code(s): I10 - Essential (primary) hypertension Status: Acute Assessment and Plan: Hold BP medication in the setting of acute kidney injury and hypotension. BP previously moderately controlled with SBP in the 140-150 range. Resuming BP medications today as BPs have been >140 this afternoon and evening. no concerns since admission, now D/C'ing Cardiac Telemetry monitoring. Resumed amlodipine 5 mg p.o. daily Resumed clonidine 0.1 mg p.o. t.i.d. to avoid rebound HTN. HOLDING lisinopril 40 mg p.o. daily, HELD in the setting of LASHAWN. Continue VS every 4 hours. CONTROLLED. (4) Abnormal CT of the abdomen: Code(s): R93.5 - Abnormal findings on diagnostic imaging of other abdominal regions, including retroperitoneum Status: Acute Assessment and Plan: Soft tissue prominence of the proximal sigmoid colon. Patient denies history of a colonoscopy, although her history is limited by her dysarthria. Per GI, MUST arrange EUS of pancreas as outpatient - see Pancreatic Mass plan below. (5) Adrenal mass: Code(s): E27.8 - Other specified disorders of adrenal gland Status: Acute Assessment and Plan: Incidentally noted on CT scan. (6) Pancreatic mass: Code(s): K86.89 - Other specified diseases of pancreas Status: Acute Assessment and Plan: GI wanted to refer her for EUS as an outpatient - but in her condition and due to fdc stay - it is not likely this will happen. Per Dr. Rubalcava's consult note at last admission, the patient may have a pancreatic lesion in question. He wants to get an endoscopic ultrasound and then if surgical intervention is needed for that perhaps, the gallbladder can be removed at that time as well. At this time, she is not having any abdominal pain or discomfort. She has a strong appetite. Her lipase is WNL, 81 on 10/16/21. Antibiotics were stopped at this admission due to her Acute Renal Failure. Will continue to monitor for any N/V/Pain or developing concerns. (7) Stroke due to embolism: Code(s): I63.9 - Cerebral infarction, unspecified Status: Acute Assessment and Plan: restarted plavix for s
[2021-10-19 12:00] VITALS: BP 155/78; PULSE 81; RESP 14; TEMP 36.8; O2SAT 99
--- NOTE | 2021-10-19 12:28 | PCSTNOTE ---
Please refer to the Modified Barium Swallow Evaluation in the EMR. Recommend a diet of regular solids (level 7) and moderately thickened liquids (level 3). See report for details.
[2021-10-19 16:00] VITALS: BP 147/74; PULSE 67; RESP 22; TEMP 36.7; O2SAT 98
[2021-10-19 20:00] VITALS: BP 169/58; PULSE 60; RESP 16; TEMP 36.6; O2SAT 98
[2021-10-19] MEDS: DOCUSATE SODIUM 100 MG CAPSULE PO (22:05)
[2021-10-20 04:00] VITALS: BP 159/86; PULSE 53; RESP 16; TEMP 36.5; O2SAT 100
[2021-10-20 07:20] LABS: Hematocrit 27.9 % (37.0-47.0); Hemoglobin 9.1 g/dL (12.0-15.0); Mean Corpuscular HGB Conc 32.6 g/dl (32-36); Mean Corpuscular Hemoglobin 28.5 pg (26-34); Mean Corpuscular Volume 87.5 fl (80-100); Mean Platelet Volume 9.3 fl (7.4-10.4); Platelet Count Result 362 k/mm3 (150-375); Red Blood Count 3.19 M/mm3 (4.2-5.4); Red Cell Distribution Width 13.2 % (11.5-14.5)
[2021-10-20 07:25] LABS: Alanine Aminotransferase 13 U/L (4-35); Albumin Level 3.5 g/dL (3.5-5.1); Alkaline Phosphatase 85 U/L (38-126); Anion Gap 7 mmol/L (8-16); Aspartate Amino Transferase 18 U/L (14-36); Bilirubin,Total 0.3 mg/dL (0.2-1.3); Blood Urea Nitrogen 10 mg/dL (7-17); Calcium 8.8 mg/dL (8.4-10.2); Carbon Dioxide 25 mmol/L (22-30); Chloride 105 mmol/L (98-107); Estimated CRCL calculation 76 ml/min; Estimated Glomerular Filt Rate > 60; Glucose 106 mg/dL (65-110); Potassium 3.4 mmol/L (3.4-5.0); Sodium 137 mmol/L (137-145)
[2021-10-20] MEDS: CLOPIDOGREL BISULFATE 75 MG TABLET PO (08:43)
[2021-10-20] MEDS: amLODIPine BESYLATE 5 MG TABLET 10 MG PO (08:43)
[2021-10-20] MEDS: ASPIRIN 81 MG CHEWABLE TABLET PO (08:43)
[2021-10-20] MEDS: MICONAZOLE NITRATE 2% CREAM 30 GM TUBE 1 APPLIC TOPICAL (08:44)
[2021-10-20] MEDS: cloNIDine HCL 0.1 MG TABLET PO ×2 (08:44→12:13)
[2021-10-20] MEDS: ATORVASTATIN 40 MG TABLET 80 MG PO (08:44)
--- NOTE | 2021-10-20 11:17 | PM.DS ---
DS: Admitting Diagnosis Discharge Date 10/20/2021 Admitting Diagnosis Altered mental status DS: Discharge Diagnosis Discharge Diagnosis (1) Unresponsiveness: Code(s): R41.89 - Other symptoms and signs involving cognitive functions and awareness Status: Acute Assessment and Plan: The actual etiology is unclear. Patient was brought in for altered mental status. Her unresponsiveness at the long term may have been related to lactic acidosis and/or her medications, having too many medications, as well as psych medication side effects. We are currently holding or have reduced dosing on some of those medications. Head CT scan on 10/16 unchanged from 10/09. On arrival her blood pressure was on the low side. She received IV resuscitation with IV fluids. Her blood pressure quickly improved in her mentation is better. PT/OT/ST eval. Maintain fall precaution. Continue close monitoring. RESOLVED. (2) Acute kidney injury: Code(s): N17.9 - Acute kidney failure, unspecified Status: Acute Assessment and Plan: Patient was recently discharged from the hospital 3 days ago. At the time, her creatinine was stable in the 0.7- 0.9 range. However on the day of discharge creatinine was double at 1.8. THen this admission creatinine 2.6. IVFS given and now 0.70. This is likely prerenal versus ischemic ATN in the setting of hypotension. Most likely due to Poor PO hydration. Especially since her CVA. As baseline the patient hypertension was moderately control with systolic BP is in the 140-150 range. WNL Renal ultrasound. Urine electrolytes. Renally dose medication or hold if nephrotoxic. Avoid contrast exposure and other nephrotoxic agents.Lisinopril D/C'd. renal fxn labs back to normal today KEEP well HYDRATED. Feed patient. Assist with all meals. Continue ST after discharge. (3) Hypertension: Code(s): I10 - Essential (primary) hypertension Status: Acute Assessment and Plan: Hold BP medication in the setting of acute kidney injury and hypotension. BP previously moderately controlled with SBP in the 140-150 range. Resuming BP medications today as BPs have been >140 this afternoon and evening. no concerns since admission, now D/C'ing Cardiac Telemetry monitoring. Resumed amlodipine 5 mg p.o. daily Resumed clonidine 0.1 mg p.o. t.i.d. to avoid rebound HTN. HOLDING lisinopril 40 mg p.o. daily, HELD in the setting of LASHAWN. Continue VS every 4 hours. CONTROLLED. (4) Abnormal CT of the abdomen: Code(s): R93.5 - Abnormal findings on diagnostic imaging of other abdominal regions, including retroperitoneum Status: Acute Assessment and Plan: Soft tissue prominence of the proximal sigmoid colon. Patient denies history of a colonoscopy, although her history is limited by her dysarthria. Per GI, MUST arrange EUS of pancreas as outpatient - see Pancreatic Mass plan below. (5) Adrenal mass: Code(s): E27.8 - Other specified disorders of adrenal gland Status: Acute Assessment and Plan: Incidentally noted on CT scan. (6) Pancreatic mass: Code(s): K86.89 - Other specified diseases of pancreas Status: Acute Assessment and Plan: GI wanted to refer her for EUS as an outpatient - but in her condition and due to long term stay - it is not likely this will happen. Per Dr. Rubalcava's consult note at last admission, the patient may have a pancreatic lesion in question. He wants to get an endoscopic ultrasound and then if surgical intervention is needed for that perhaps, the gallbladder can be removed at that time as well. At this time, she is not having any abdominal pain or discomfort. She has a strong appetite. Her lipase is WNL, 81 on 10/16/21. Antibiotics were stopped at this admission due to her Acute Renal Failure. Will continue to monitor for any N/V/Pain or developing concerns. (7) Stroke due to embolism: Code(s): I63.9 - Cer
[2021-10-20] MEDS: POTASSIUM CHLORIDE 20 MEQ TABLET PO (12:13)
[2021-10-20] MEDS: traMADol HCL (*CRX) 50 MG TABLET PO (12:13)
[2021-10-20 12:48] LABS: EDCOVIDSCREEN Negative (Negative)
[2021-10-20 14:00] VITALS: BP 129/67; PULSE 65; RESP 20; TEMP 36.9; O2SAT 99
== END 2021-10-20 16:22 | DRG 683 ==
LOC: ANHED 20:33 → ANH3MEDSUR 10-17 00:55
PROVIDERS: Nurse Practitioner; Admitting Provider Internal Medicine; Emergency Provider General Practice; PCP Internal Medicine; Visit Provider Internal Medicine
DX: N17.9 Acute kidney failure, unspecified (principal); K80.10 Calculus of gallbladder with chronic cholecystitis without obstruction; E87.2 Acidosis; Z20.822 Contact with and (suspected) exposure to COVID-19; R41.89 Other symptoms and signs involving cognitive functions and awareness; T50.995A Adverse effect of other drugs, medicaments and biological substances, initial encounter; I95.9 Hypotension, unspecified; I10 Essential (primary) hypertension; E78.5 Hyperlipidemia, unspecified; I69.322 Dysarthria following cerebral infarction; I69.391 Dysphagia following cerebral infarction; K86.89 Other specified diseases of pancreas; F17.210 Nicotine dependence, cigarettes, uncomplicated; E27.8 Other specified disorders of adrenal gland; E66.9 Obesity, unspecified; Z68.34 Body mass index [BMI] 34.0-34.9, adult; Z93.1 Gastrostomy status
CPT/HCPCS: 36415; 70450; 71045; 71046; 76775; 80053; 81001; 82140; 82570; 83605; 83690; 83735; 83880; 84100; 84300; 84443; 84484; 85025; 85027; 85610; 85730; 85999; 87040; 87426; 92523; 92526; 92610; 92611; 93005; 96360; 96361; 97161; 97165; 97535; 99285; A9270; C9803; G0378; J7030

== ENCOUNTER → 2022-01-10 12:58 | Outpatient (CLI) | payer MEDICARE, MEDICAID, SELFPAY ==
--- NOTE | ~2022-01-10 | MR_ITS ---
EXAMINATION: MR abdomen wo con DATE: 01/10/2022 14:29 INDICATION: Other specified diseases of pancreas. TECHNIQUE: Magnetic resonance imaging (MRI) of the abdomen was performed without intravenous contrast . Sequences included coronal T2-weighted FS FSE, coronal and axial FS FIESTA, axial T2-weighted FSE, coronal LAVA-flex, axial STIR FSE, axial DWI, axial dual-echo T1-weighted FSPGR, and axial LAVA. COMPARISON: CT abdomen and pelvis 10/09/2021 FINDINGS: The liver is normal. There are gallstones in the gallbladder, which is normal in size. Gallbladder wa ll thickening is noted. The spleen, adrenal glands, and kidneys are normal. There is a 3.7 cm partial ly cystic mass of heterogeneous signal intensity in the tail of the pancreas. It is not clear if ther e is communication with the main pancreatic duct, which is normal in caliber. The CT demonstrates a f ocal wall calcification. There is a 1.8 cm mass in left adrenal gland containing microscopic fat, con sistent with an adenoma. The right adrenal gland and kidneys are normal. There are no dilated loops o f bowel. There is diverticulosis of the colon without evidence of diverticulitis. There are no pathol ogically enlarged lymph nodes. There is no free intraperitoneal fluid. IMPRESSION: 1. 3.7 cm partially cystic mass with focal peripheral calcification in the tail of the pancreas. The differential diagnosis includes pseudocyst, intraductal papillary mucinous neoplasm (IPMN), mucinous cystic neoplasm (MCN), serous cystadenoma, and neuroendocrine tumor. Surgical consultation is recomme nded. 2. Cholelithiasis. Gallbladder wall thickening suggests chronic cholecystitis. Reviewed, dictated and finalized at [facility]. IMPRESSION: 1. 3.7 cm partially cystic mass with focal peripheral calcification in the tail of the pancreas. The differential diagnosis includes pseudocyst, intraductal p apillary mucinous neoplasm (IPMN), mucinous cystic neoplasm (MCN), serous cysta denoma, and neuroendocrine tumor. Surgical consultation is recommended. 2. Cholelithiasis. Gallbladder wall thickening suggests chronic cholecystitis.
== END ==
PROVIDERS: PCP Family Medicine; Visit Provider Family Medicine
DX: K86.89 Other specified diseases of pancreas (principal); K80.20 Calculus of gallbladder without cholecystitis without obstruction; R93.89 Abnormal findings on diagnostic imaging of other specified body structures
CPT/HCPCS: 74181

== ENCOUNTER 2022-03-17 23:46 | Emergency (ER) | payer MEDICARE, MEDICAID, SELFPAY ==
--- NOTE | ~2022-03-17 | CT_ITS ---
EXAMINATION: CT abdomen pelvis wo con DATE: 03/18/2022 00:36 INDICATION: Left-sided abdominal tenderness, pain TECHNIQUE: Computed tomography (CT) of the abdomen and pelvis was performed without intravenous contr ast. Automated exposure control and iterative reconstruction technique were employed. Exam dose: 142 3.48 mGy-cm total exam DLP. COMPARISON: 01/10/2022 MR abdomen 10/09/2021 CT abdomen pelvis FINDINGS: The lung bases are clear. Borderline heart size. No pericardial or pleural effusion. Cholelithiasis is noted. Gallbladder wall thickening is not excluded. Consider gallbladder ultrasound for further evaluation as clinically appropriate. No bile duct or pancreatic duct dilatation. No hepatic or splenic space-occupying mass lesion. Cystic pancreatic mass with some peripheral calcification is again noted; detail is somewhat limited due to artifact from overlying upper extremities. An approximately 1.6 cm left adrenal mass lesion is again noted. Small lower pole left renal nonobstructing calculus. No renal mass lesion is evident on this limited noncontrast examination. There is extensive calcification of the abdominal aorta as well as calcification of the celiac, super ior mesenteric and renal arteries. No abdominal aortic aneurysm. No intraperitoneal or retroperitoneal or pelvic mass lesion or adenopathy or ascites. There is a large stool ball in the rectosigmoid area measuring up to 8 cm. Diverticulosis of sigmoid and descending colon, splenic flexure, to a lesser extent right colon; no CT evidence of diverticulit is. Normal appendix. No bowel obstruction is noted. Calcified uterine fibroids. Right fat-containing inguinal hernia. Diffuse idiopathic skeletal hyperostosis of the thoracolumbar spine. Degenerative change at the apophyseal joints of the lumbar and lumbosacral area with minimal grade 1 anterolisthesis at L5-S1. No suspicious osteolytic or osteoblastic lesions are noted. IMPRESSION: Cholelithiasis; consider gallbladder ultrasound for more definitive determination of gal lbladder wall thickness Left lateral body pancreatic cystic mass; differential diagnosis given above Approximately 1.6 cm left adrenal mass Small nonobstructing lower pole left renal calculus Normal appendix Diverticulosis of the colon; no evidence of diverticulitis Large rectal sigmoid stool ball; no bowel obstruction or free air Reviewed, dictated and finalized at [facility]. Reviewed, dictated and finalized at [facility]. IMPRESSION: Cholelithiasis; consider gallbladder ultrasound for more definitiv e determination of gallbladder wall thickness Left lateral body pancreatic cystic mass; differential diagnosis given above Approximately 1.6 cm left adrenal mass Small nonobstructing lower pole left renal calculus Normal appendix Diverticulosis of the colon; no evidence of diverticulitis Large rectal sigmoid stool ball; no bowel obstruction or free air
[2022-03-17 23:48] VITALS: BP 144/103; PULSE 59; RESP 18; TEMP 36.7; O2SAT 99
[2022-03-17 23:50] VITALS: PULSE 60; RESP 17; O2SAT 99
[2022-03-18] VITALS (16 sets, daily range): BP systolic 102–156; BP diastolic 60–91; PULSE 62–92; RESP 13–20; O2SAT 93–100
[2022-03-18 00:49] LABS: Basophils Percent Auto 0.5 % (0.2-1.2); Eosinophils Absolute Auto 0.2 K/mm3 (0-0.3); Eosinophils Percent Auto 2.7 % (0-4.4); Hematocrit 34.3 % (37.0-47.0); Hemoglobin 10.5 g/dL (12.0-15.0); Immature Granulocyte Absolute 0.03 K/mm3 (0.00-0.031); Immature Granulocyte Percent A 0.5 % (0-0.5); Lymphocytes Absolute Auto 2.75 K/mm3 (0.9-3.2); Lymphocytes Percent Auto 46.1 % (18.3-44.2); Mean Corpuscular HGB Conc 30.6 g/dl (32-36); Mean Corpuscular Hemoglobin 27.6 pg (26-34); Mean Platelet Volume 9.4 fl (7.4-10.4); Monocytes Absolute Auto 0.4 K/mm3 (0.1-0.6); Monocytes Percent Auto 6.5 % (2.6-8.5); Neutrophils Absolute Auto 2.6 K/mm3 (1.3-6.7); Neutrophils Percent Auto 43.7 % (45.5-73.1); Platelet Count Result 285 k/mm3 (150-375); Red Blood Count 3.81 M/mm3 (4.2-5.4); Red Cell Distribution Width 15.1 % (11.5-14.5)
[2022-03-18 01:03] LABS: Alanine Aminotransferase 17 U/L (6-35); Albumin Level 4.1 g/dL (3.5-5.1); Alkaline Phosphatase 103 U/L (38-126); Anion Gap 7 mmol/L (8-16); Aspartate Amino Transferase 22 U/L (14-36); Bilirubin,Total 0.2 mg/dL (0.2-1.3); Blood Urea Nitrogen 15 mg/dL (7-17); Calcium 8.7 mg/dL (8.4-10.2); Carbon Dioxide 26 mmol/L (22-30); Chloride 109 mmol/L (98-107); Estimated CRCL calculation 78 ml/min; Estimated Glomerular Filt Rate > 60; Glucose 118 mg/dL (65-110); Lipase 394 U/L (23-300); Potassium 3.4 mmol/L (3.4-5.0); Sodium 142 mmol/L (137-145)
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
== END 2022-03-18 08:42 ==
PROVIDERS: Emergency Provider Emergency Medicine; PCP Family Medicine
DX: K59.00 Constipation, unspecified (principal); I69.920 Aphasia following unspecified cerebrovascular disease; E78.5 Hyperlipidemia, unspecified; I10 Essential (primary) hypertension; F17.210 Nicotine dependence, cigarettes, uncomplicated
CPT/HCPCS: 36415; 74176; 80053; 83690; 85025; 99284

== ENCOUNTER 2022-09-13 10:08 | Outpatient (CLI) | payer MEDICARE, MEDICAID, SELFPAY ==
--- NOTE | ~2022-09-13 | XR_ITS ---
EXAMINATION: XR barium swallow DATE: 09/13/2022 11:30 INDICATION: Dysphagia. Concern for Going down the wrong tube. TECHNIQUE: The patient drank thick barium. Fluoroscopic spot radiographs of the hypopharynx and esoph arlette were obtained. Fluoroscopy exposure time was 0.5 minutes. A total of 290 fluoroscopic images we re obtained. COMPARISON: None. FINDINGS: The patient was unable to stand and was placed in the right lateral decubitus position with the head of table mildly elevated. On the first swallow there was laryngeal penetration with significant quant ity of contrast during early during the swallow which only partially cleared. Patient was unable to s uccessfully clear the contrast a subsequent cough. Esophageal motility appeared normal with rapid pas mariela of contrast into the stomach. Given the likelihood of additional aspiration particularly if proc eeding with thin contrast in the confirmation of pharyngeal dysphagia which appear to be clinical que stion, it was elected to terminate the procedure this point with recommendation for further evaluatio n with modified swallow study performed by the department of speech pathology. IMPRESSION: 1. Laryngeal penetration without adequate clearance occurring on initial swallow at which point the s tudy was terminated. The patient is at increased risk of aspiration and would recommend proceeding wi th a dedicated modified swallow study for more detailed evaluation of the pharyngeal dysphagia includ ing assessment with varying consistencies of diet and with swallow modification techniques. I discuss ed these findings with Vitaly Panchal at 4:25 PM. Reviewed, dictated and finalized at location [facility]. [facility] IMPRESSION: 1. Laryngeal penetration without adequate clearance occurring on initial swallo w at which point the study was terminated. The patient is at increased risk of aspiration and would recommend proceeding with a dedicated modified swallow moo dy for more detailed evaluation of the pharyngeal dysphagia including assessmen t with varying consistencies of diet and with swallow modification techniques. I discussed these findings with Vitaly Panchal at 4:25 PM.
== END 2022-09-13 10:09 | disposition home or self-care (01) ==
PROVIDERS: PCP Family Medicine; Visit Provider Family Medicine
DX: R13.10 Dysphagia, unspecified (principal)
CPT/HCPCS: 74220

== ENCOUNTER 2022-09-24 23:27 | Emergency (ER) | payer OTHER, MEDICARE, MEDICAID, SELFPAY ==
[2022-09-24 23:41] VITALS: O2SAT 100
[2022-09-24 23:42] VITALS: BP 160/97; PULSE 81; RESP 14; TEMP 36.4; O2SAT 100
[2022-09-24 23:45] VITALS: O2SAT 100
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
[2022-09-25] VITALS (13 sets, daily range): BP systolic 122–135; BP diastolic 76–80; O2SAT 93–100
[2022-09-25] MEDS: ONDANSETRON INJ 4 MG/2 ML VIAL IM (00:34)
[2022-09-25] MEDS: MORPHINE SULFATE INJ (*CRX) 10 MG/ML AMP 4 MG IM (00:34)
[2022-09-25] MEDS: BACITRACIN OINTMENT 15 GM TUBE 1 APPLIC TOPICAL (02:12)
[2022-09-25] MEDS: BACITRACIN OINTMENT 15 GM TUBE 2 APPLIC (02:25)
--- NOTE | 2022-09-25 02:26 | PC.NURSE ---
Due to large area needing Bacitracin a second tube of medication was pulled from the pyxis and administered.
== END 2022-09-25 05:29 ==
PROVIDERS: Emergency Provider Nurse Practitioner Family; PCP Family Medicine
DX: T21.17XA Burn of first degree of female genital region, initial encounter (principal); T31.0 Burns involving less than 10% of body surface; I69.920 Aphasia following unspecified cerebrovascular disease; E78.5 Hyperlipidemia, unspecified; I10 Essential (primary) hypertension; F17.210 Nicotine dependence, cigarettes, uncomplicated; X11.8XXA Contact with other hot tap-water, initial encounter
CPT/HCPCS: 96372; 99284; A9270; J2270; J2405

== ENCOUNTER 2022-10-05 01:41 | Emergency (ER) | payer MEDICARE, MEDICAID, SELFPAY ==
[2022-10-05 01:38] VITALS: BP 145/80; PULSE 70; RESP 16; TEMP 36.7; O2SAT 99
--- NOTE | 2022-10-05 05:17 | ED.GENADULT ---
HPI - General Adult General Chief complaint: Unspecified Stated complaint: DYSURIA, RASH PERINEAL AREA Time Seen by Provider: 10/05/22 01:48 Source: patient, EMS and RN notes reviewed Mode of arrival: EMS Limitations: other (aphasia due to previous CVA) History of Present Illness HPI narrative: This is a 61 year old female with history of CVA, aphasia, bed bound who presents for evaluation of groin rash. PAtient states nursing spilled hot water over her pelvis several days ago. She was evaluated in ER 1 week ago for groin and perineal wounds that she thinks are due to coats. She lives in a long-term and they have silvadene ordered and skin protectant order and nystatin. PAtient states she is refusing certain creams. She was offered tramadol but she refused. PAtient states she is having burning to her groin to gluteals due to this wound/rash. She denies abdominal pain, nausea, vomiting, fever or chills. Patient wears depends . Related Data Home Medications Medication Instructions Recorded Confirmed atorvastatin 80 mg tablet 80 mg PO DAILY 05/25/21 10/17/21 clonidine HCl 0.1 mg tablet 0.1 mg PO TID 05/25/21 10/17/21 famotidine 20 mg tablet 20 mg PO BID 05/25/21 10/17/21 gabapentin 300 mg capsule 300 mg PO BID 05/25/21 10/17/21 hydroxyzine HCl 10 mg tablet 10 mg PO BID 05/25/21 10/17/21 lisinopril 40 mg tablet 40 mg PO DAILY 05/25/21 10/17/21 amlodipine 10 mg tablet (Norvasc) 10 mg PO DAILY 10/09/21 10/17/21 aripiprazole 2 mg tablet (Abilify) 2 mg PO DAILY 10/09/21 10/17/21 bisacodyl 10 mg rectal suppository 10 mg RECTAL PRN PRN Constipation 10/09/21 10/17/21 (Dulcolax (bisacodyl)) miconazole-tolnaftate 2 % topical BID 10/09/21 10/17/21 Allergies Allergy/AdvReac Type Severity Reaction Status Date / Time Penicillins Allergy Intermediate Hives Verified 10/17/21 04:58 Review of Systems Constitutional: Constitutional: Denies weakness Cardiovascular: Cardiovascular: Denies syncope, Denies rapid heart rate, Denies irregular heart rhythm, Denies leg edema and Denies dyspnea Respiratory: Respiratory: Denies chest congestion, Denies hemoptysis, Denies excessive phlegm production and Denies dyspnea Gastrointestinal: Gastrointestinal: Denies abdominal pain, Denies hematochezia, Denies diarrhea and Denies vomiting Genitourinary: Genitourinary: Denies hematuria and Denies dysuria Musculoskeletal: Musculoskeletal: Denies joint swelling, Denies loss of height and Denies muscle weakness Integumentary/Breasts: Skin/Breast: Reports lesions and Reports non-healing lesions Neurologic: Denies syncope, Denies focal weakness and Denies weakness PMFSH Past Medical History Medical History Aphasia History of CVA (cerebrovascular accident) History of gastrostomy tube placement S/p stroke had G-tube which has since been removed. History of hyperlipidemia History of hypertension Surgical History Surgical History History of tubal ligation Family History Family History Father of unknown cause Mother Heart attack Hypertension Social History Social History Smoking packs per day: 1 Smoking cigarettes per day: 20.0 Years smoked: 30 Smoking pack-years: 30.00 Smoking status: Current some day smoker Second hand tobacco smoke exposure: Yes Alcohol intake: former Drinks per week: 0 Other substance usage details: smoke cigarettes sometimes Spiritual care concerns: No Exam Narrative: GENERAL: Well-appearing, well-nourished, and in no acute distress. obese HEAD: Normocephalic, atraumatic THROAT:Mucous membranes moist, Oropharynx normal without erythema, exudate, peritonsillar swelling or fluctuance NECK: Supple, without lymphadenopathy or mass RESPIRATORY: No respiratory distress
--- NOTE | 2022-10-05 05:46 | PC.NURSE ---
attempted to call report several times with no answer
== END 2022-10-05 06:08 | disposition home or self-care (01) ==
PROVIDERS: Emergency Provider General Practice; PCP Family Medicine
DX: B37.2 Candidiasis of skin and nail (principal); I69.920 Aphasia following unspecified cerebrovascular disease; E78.5 Hyperlipidemia, unspecified; I10 Essential (primary) hypertension; F17.210 Nicotine dependence, cigarettes, uncomplicated
CPT/HCPCS: 99281